=== PATIENT | female | born 1960 | race Hispanic/Latino ===

== ENCOUNTER → 2019-01-04 | Day surgery (SDC) | payer MEDICARE ==
[~2019-01-04] MED LIST: CARTIA XT180 MG PO; FENTANYL CITRATE/PF 100MCG/2 ML INJ ONE; MIDAZOLAM HCL 2 MG/2 ML VIAL ONE; PROPOFOL IV EMULSION 10 MG/ML 50 ML VIAL ONE
--- OUTSIDE RECORDS SUMMARY | 2019-01-04 06:31 | XMS REPORT | Continuity of Care Document ---
Author Author [facility] Interface Address Unknown Phone Unavailable Problems Problem Status Onset Date Classification Date Reported Comments Source FALL Active 07/29/2018 [facility] Discharge Diagnosis: Acute flank pain 08/09/2017 08/12/2017 [facility] Discharge Diagnosis: Acute UTI 08/09/2017 08/12/2017 [facility] Discharge Diagnosis: Abdominal pain in female 08/09/2017 08/12/2017 [facility] FLANK PAIN Active 08/09/2017 [facility] M54.12 - "RADICULOPATHY, CERVICAL REGION Active 06/02/2017 [facility] Discharge Diagnosis: Acute headache 03/02/2016 03/05/2016 [facility] Discharge Diagnosis: Paresthesias in left hand 03/02/2016 03/05/2016 [facility] NUMBNESS Active 03/02/2016 [facility] 723.4 - BRACHIAL NEURIT Active 06/27/2015 [facility] [id number], [id number] ([id number]), [id number], [id number]-- Active 05/23/2015 [facility] CERVICAL SPONDYLOSIS WITH MYELOPATHY Active 05/14/2015 Condition 05/14/2015 [facility] CERVICAL SPINAL STENOSIS Active 05/14/2015 Condition 05/14/2015 [facility] Cervical spondylosis with myelopathy<sup>2</sup> Active 05/14/2015 Problem 08/12/2017 Data migrated from [facility] on 05/27/15. [facility] CERV KYPHOSIS, ICD 9- 737.10 Active 03/19/2015 [facility] BACK PAIN Active 03/19/2015 [facility] HISTORY OF HYPERTENSION Inactive 03/17/2015 Condition 05/14/2015 [facility] TOBACCO USE DISORDER Inactive 03/17/2015 Condition 05/14/2015 [facility] CERVICAL NECK PAIN Active 03/17/2015 Condition 05/14/2015 [facility] CERVICAL HNP W/O MYELOPHATHY Active 03/17/2015 Condition 03/17/2015 [facility] KYPHOSIS (POSTURAL) Active 03/17/2015 Condition 05/14/2015 [facility] CERVICAL RADICULOPATHY Active 03/17/2015 Condition 05/14/2015 [facility] CERVICAL DISC DISORDER W/MYELOPAT Active 03/17/2015 Condition 05/14/2015 [facility] Cervical radiculopathy<sup>1</sup> Active 03/17/2015 Problem 08/12/2017 Data migrated from [facility] on 05/27/15. [facility] ACQUIRED SPONDYLOLISTHESIS Inactive 06/13/2012 Condition 05/14/2015 [facility] HERNIATED LUMBAR DISC Inactive 06/13/2012 Condition 05/14/2015 [facility] SPINAL STENOSIS, LUMBAR Inactive 06/13/2012 Condition 05/14/2015 [facility] SPONDYLOSIS, LUMBAR Inactive 06/13/2012 Condition 05/14/2015 [facility] SEROMA Inactive 06/13/2012 Condition 05/14/2015 [facility] Back pain Active Problem 08/25/2015 [facility] Acquired spondylolisthesis Active Problem 08/12/2017 [facility] Back injury Active Problem 08/12/2017 [facility] Cervical spine instability Active Problem 08/12/2017 [facility] Hepatitis C Active Problem 08/12/2017 [facility] Herniated lumbar intervertebral disc Active Problem 08/12/2017 [facility] Hypertension Active Problem 08/12/2017 [facility] Hypertension Active Problem 08/12/2017 [facility] Low back pain Active Problem 08/12/2017 [facility] Lumbar radiculopathy Active Problem 08/12/2017 [facility] Lumbar spinal stenosis Active Problem 08/12/2017 [facility] Lumbar spondylosis Active Problem 08/12/2017 [facility] Neck pain Active Problem 08/12/2017 [facility] Cervical spinal stenosis Active Problem 08/12/2017 [facility] Weakness Active Problem 08/12/2017 [facility] Herniated lumbar intervertebral disc Active Problem 06/04/2015 [facility] KYPHOSIS NOS Active [facility] ADMINISTRTVE [place] NOS Active [facility] Medications Medication Details Route Status Patient Instructions Ordering Provider Order Date Source [place] 10/325 oral tablet 1 tab, Route: PO, Drug Form: TAB, Dosing Weight 63.636, kg, ONCE, STAT, Start date: 08/09/17 21:42:00 [employer]HEAD CLE[employer]INTAINER, Stop date: 08/09/17 21:42:00 OVERHEAD CLEANER MAINTAINER Inactive 08/10/2017 [facility] Macrobid 100 mg oral capsule 100 mg=1 cap, PO, BID, X 7 day, # 14 cap, 0 Refill(s) Active 08/10/2017 [facility] Pepcid 20 mg oral tablet 20 mg=1 tab, PO, BID, # 28 tab, 0 Refill(s) Active 08/10/2017 [facility] Bentyl 10 mg oral capsule 10 mg=1 cap, PO, QID, # 28 cap, 0 Refill(s) Active 08/10/2017 [facility] Zofran ODT 4 mg oral tablet, disintegrating 4 mg=1 tab, PO, BID, PRN Nausea and Vomiting, Dissolve tab under tongue, # 6 tab, 0 Refill(s) Active 08/10/2017 [facility] Rocephin + water for INJection, sterile 10 mL 1 gm, Route: IVP, ONCE, Dosing Weight 63.636, kg, Priority: STAT, Start date: 08/09/17 20:17:00 OVERHEAD CLEANER MAINTAINER, Duration: 1 doses or times, Stop date: 08/09/17 20:17:00 OVERHEAD CLEANER MAINTAINER, ABX Indication: Urinary Tract InfectionNotes: (Same As: Rocephin). Use with 100 mL NS and infuse over 30 min MEDICATION WASTE Product Size: 1000 mg Product Wasted: ___ mg Inactive 08/10/2017 [facility] morphine Sulfate 4 mg, Route: IVP, ONCE, Dosing Weight 63.636, kg, Start date: 08/09/17 18:57:00 OVERHEAD CLEANER MAINTAINER, Stop date: 08/09/17 18:57:00 OVERHEAD CLEANER MAINTAINER Inactive 08/10/2017 [facility] NS (Bolus) IV 1,000 mL, 1,000 ml/hr, Infuse Over: 1 hr, Route: IV, ONCE, Priority: STAT, Dosing Weight 63.636 kg, Start date: 08/09/17 18:57:00 OVERHEAD CLEANER MAINTAINER, Duration: 1 doses or times, Stop date: 08/09/17 18:57:00 OVERHEAD CLEANER MAINTAINER Inactive 08/10/2017 [facility] Zofran 4 mg, Route: IVP, Drug form: INJ, ONCE, Dosing Weight 63.636, kg, Priority: STAT, Start date: 08/09/17 18:57:00 OVERHEAD CLEANER MAINTAINER, Stop date: 08/09/17 18:57:00 OVERHEAD CLEANER MAINTAINER Inactive 08/10/2017 [facility] ondansetron 4 mg, 2 mL, Route: IVP, Drug form: INJ, ONCE, Dosing Weight 65.909, kg, Priority: STAT, Start date: 08/09/17 16:16:00 OVERHEAD CLEANER MAINTAINER, Stop date: 08/09/17 16:16:00 CSTNotes: (Same as: Zofran) MEDICATION WASTE Product Size: 4 mg Product Wasted: ___ mg Inactive 08/09/2017 [facility] morphine Sulfate 4 mg, 1 mL, Route: IVP, Drug form: SOLN, ONCE, Dosing Weight 65.909, kg, Priority: STAT, Start date: 08/09/17 16:16:00 OVERHEAD CLEANER MAINTAINER, Stop date: 08/09/17 16:16:00 CSTNotes: (Same as:MORPhine Sulfate) Inactive 08/09/2017 [facility] Sodium Chloride 0.9% (Bolus) IV 1,000 mL, 2,000 ml/hr, Infuse Over: 30 minutes, Route: IV, 1,000, Drug form: INJ, ONCE, Priority: STAT, Dosing Weight 65.909 kg, Start date: 08/09/17 16:16:00 OVERHEAD CLEANER MAINTAINER, Duration: 1 doses or times, Stop date: 08/09/17 16:16:00 OVERHEAD CLEANER MAINTAINER Inactive 08/09/2017 [facility] Saline Flush 0.9% 10 mL, Route: IVP, Drug Form: INJ, Dosing Weight 65.909, kg, PRN, PRN Line Flush, Start date: 08/09/17 16:16:00 OVERHEAD CLEANER MAINTAINER, Duration: 30 day, Stop date: 09/08/17 16:15:00 CSTNotes: (Same as: BD Posiflush) Inactive 08/09/2017 [facility] Benadryl 25 mg, Route: IVP, ONCE, Dosing Weight 65.909, kg, Priority: STAT, Start date: 03/02/16 13:21:00 CDT, Stop date: 03/02/16 13:21:00 CDT Inactive 03/02/2016 [facility] Reglan 10 mg, Route: IVP, Drug form: INJ, ONCE, Dosing Weight 65.909, kg, Priority: STAT, Start date: 03/02/16 13:21:00 CDT, Stop date: 03/02/16 13:21:00 CDT Inactive 03/02/2016 [facility] Ketorolac 30 mg, Route: IVP, Drug form: INJ, ONCE, Dosing Weight 65.909, kg, Priority: STAT, Start date: 03/02/16 13:21:00 CDT, Stop date: 03/02/16 13:21:00 CDT Inactive 03/02/2016 [facility] Valproic Acid 100 MG/ML Injectable Solution 1,000 mg, 10 mL, Route: IVPB, ONCE, Dosing Weight 65.909, kg, Start date: 03/02/16 13:20:00 CDT, Stop date: 03/02/16 13:20:00 CDTNotes: TUBE TO #2E TUBE TO #2E TUBE TO #2E Dilute in at least 50ml D5W or NS. Infusion rate=20 mg/min (Same As: Depacon) Inactive 03/02/2016 [facility] Morphine 2 mg, Route: IVP, Drug form: INJ, ONCE, Dosing Weight 65.909, kg, Priority: STAT, Start date: 03/02/16 11:44:00 CDT, Stop date: 03/02/16 11:44:00 CDT Inactive 03/02/2016 [facility] Ondansetron 4 mg, Route: IVP, ONCE, Dosing Weight 65.909, kg, Priority: STAT, Start date: 03/02/16 11:44:00 CDT, Stop date: 03/02/16 11:44:00 CDT Inactive 03/02/2016 [facility] Saline Flush 0.9% 10 mL, Route: IVP, Drug Form: INJ, Dosing Weight 65.909, kg, PRN, PRN Line Flush, Start date: 03/02/16 11:44:00 CDT, Duration: 30 day, Stop date: 04/01/16 11:43:00 CDTNotes: Same as: BD Posiflush Sterile No Longer Active 03/02/2016 [facility] Sodium Chloride 0.154 MEQ/ML Injectable Solution 1,000 mL, Infuse Over: 1 hr, Route: IV, ONCE, Priority: STAT, Dosing Weight 65.909 kg, Start date: 03/02/16 11:44:00 CDT, Duration: 1 doses or times, Stop date: 03/02/16 11:44:00 CDT Inactive 03/02/2016 [facility] Cyclobenzaprine hydrochloride 10 MG Oral Tablet [Flexeril] 10 mg=1 tab, PO, TID, PRN as needed for muscle spasm, # 90 tab, 0 Refill(s), given to patient No Longer Active 06/01/2015 [facility] Acetaminophen 325 MG / Hydrocodone Bitartrate 10 MG Oral Tablet [[place] 10/325] 1 tab, PO, TID, PRN Pain, X 30 day, # 90 day, 0 Refill(s), given to patient Active 06/01/2015 [facility] Morphine 2 mg, 1 mL, Route: IVP, Drug form: INJ, Q2H, Dosing Weight 64.602, kg, PRN Pain Score 1-5, Start date: 05/31/15 10:46:00, Duration: 30 day, Stop date: 06/30/15 10:45:00Notes: (Same as:MORPhine Sulfate) No Longer Active 05/31/2015 [facility] Furosemide 20 MG Oral Tablet 20 mg, 1 tab, Route: PO, Drug form: TAB, Daily, Dosing Weight 64.602, kg, Start date: 05/30/15 9:00:00, Duration: 30 day, Stop date: 06/28/15 9:00:00 No Longer Active 05/30/2015 [facility] Cartia XT 180 mg, 1 cap, Route: PO, Drug form: ERCAP, Daily, Dosing Weight 64.602, kg, Start date: 05/30/15 9:00:00, Duration: 30 day, Stop date: 06/28/15 9:00:00Notes: (Same as:Cardizeaparna CD) Before meals. DO NOT CRUSH. No Longer Active 05/30/2015 [facility] Docusate Sodium 100 MG Oral Capsule [Colace] 100 mg, 1 cap, Route: PO, Drug form: CAP, BID, Dosing Weight 64.602, kg, Start date: 05/29/15 17:00:00, Duration: 30 day, Stop date: 06/28/15 9:00:00Notes: (Same as: Colace) (Do Not Crush) No Longer Active 05/29/2015 [facility] Bentyl 20 mg, 2 cap, Route: PO, Drug form: CAP, QID, Dosing Weight 64.602, kg, Start date: 05/29/15 17:00:00, Duration: 30 day, Stop date: 06/28/15 13:00:00Notes: (Same as: Bentyl) No Longer Active 05/29/2015 [facility] Meperidine 12.5 mg, 0.25 mL, Route: IVP, Drug form: INJ, Q30Min, Dosing Weight 64.602, kg, PRN Other -See Comment, For shivering, Start date: 05/29/15 15:36:00, Duration: 2 doses or times, Stop date: Limited # of timesNotes: (Same As: Demerol) Inactive 05/29/2015 [facility] Flumazenil 0.2 mg, 2 mL, Route: IVP, Drug form: INJ, PRN, Dosing Weight 64.602, kg, PRN Benzodiazepine Reversal, Initial dose, Start date: 05/29/15 15:36:00, Duration: 30 day, Stop date: 06/28/15 15:35:00Notes: (Same as: Romazicon) Inactive 05/29/2015 [facility] Morphine 2 mg, 1 mL, Route: IVP, Drug form: INJ, Q5Min, Dosing Weight 64.602, kg, PRN Pain Score 4-6, Start date: 05/29/15 15:36:00, Duration: 5 doses or times, Stop date: Limited # of timesNotes: (Same as:MO RPhine Sulfate) Inactive 05/29/2015 [facility] Hydromorphone 0.5 mg, 0.25 mL, Route: IVP, Drug form: INJ, Q5Min, Dosing Weight 64.602, kg, PRN Pain Score 7-10, Start date: 05/29/15 15:36:00, Duration: 4 doses or times, Stop date: Limited # of timesNotes: (Same as: Dilaudid) Inactive 05/29/2015 [facility] Hydralazine 10 mg, 0.5 mL, Route: IVP, Drug form: INJ, Q20Min, Dosing Weight 64.602, kg, PRN Elevated BP, Start date: 05/29/15 15:36:00, Duration: 2 doses or times, Stop date: Limited # of timesNotes: (Same as: Apresoline) Push over 5 minutes Inactive 05/29/2015 [facility] Labetalol 10 mg, 2 mL, Route: IVP, Drug form: INJ, Q5Min, Dosing Weight 64.602, kg, PRN Elevated BP, Start date: 05/29/15 15:36:00, Duration: 5 doses or times, Stop date: Limited # of timesNotes: (Same as: Normod yne, Trandate) Push over 2 minutes Give bolus over 2-3 minutes. Inactive 05/29/2015 [facility] Promethazine 6.25 mg, 0.25 mL, Route: IVPB, ONCE, Dosing Weight 64.602, kg, PRN Nausea & Vomiting, Start date: 05/29/15 15:36:00Notes: Do not give IV push. (Same as: Phenergan) Inactive 05/29/2015 [facility] Ondansetron 4 mg, 2 mL, Route: IVP, Drug form: INJ, ONCE, Dosing Weight 64.602, kg, PRN Nausea & Vomiting, Start date: 05/29/15 15:36:00Notes: (Same as: Zofran) MEDICATION WASTE Product Size: 4 mg Product Wasted: ___ mg Inactive 05/29/2015 [facility] Glycopyrrolate 0.2 mg, 1 mL, Route: IVP, Drug form: INJ, Q5Min, Dosing Weight 64.602, kg, PRN Bradycardia, Start date: 05/29/15 15:36:00, Duration: 3 doses or times, Stop date: Limited # of timesNotes: (Same as: Robinul) Inactive 05/29/2015 [facility] Ephedrine 5 mg, 0.1 mL, Route: IVP, Drug form: INJ, Q5Min, Dosing Weight 64.602, kg, PRN Low Blood Pressure, Start date: 05/29/15 15:36:00, Duration: 30 day, Stop date: 06/28/15 15:35:00Notes: (Same as: ePHEDr ine Sulfate) Inactive 05/29/2015 [facility] Naloxone 0.04 mg, 0.1 mL, Route: IVP, Drug form: INJ, Q2MIN, Dosing Weight 64.602, kg, PRN Narcotic Reversal, Start date: 05/29/15 15:36:00, Duration: 8 doses or times, Stop date: Limited # of timesNotes: Same as Narcan Inactive 05/29/2015 [facility] Calcium Chloride 0.0014 MEQ/ML / Potassium Chloride 0.004 MEQ/ML / Sodium Chloride 0.103 MEQ/ML / Sodium Lactate 0.028 MEQ/ML Injectable Solution 1,000 mL, Rate: 125 ml/hr, Infuse over: 8 hr, Route: IV, Dosing Weight 64.602 kg, Total Volume: 1,000, Start date: 05/29/15 15:36:00, Duration: 30 day, Stop date: 06/28/15 15:35:00 Inactive 05/29/2015 [facility] Morphine 30 mg, 30 mL, Route: IV, Initial Loading Dose: 2 mg, INTERNET MARKETING EXECUTIVE Dose: 1 mg, INTERNET MARKETING EXECUTIVE Lockout: 10 minutes, Continuous Basal Rate: 0 mg, 4 Hour Limit (In MG): 30, Drug Form: INJ, Continuous, Start date: 05/29/15 15: 30:00, Duration: 30 day, Stop date: 06/28/15 15:2...Notes: Dose: Delay: Basal rate: 4hr limit: (Same as:Nohelia) No Longer Active 05/29/2015 [facility] Naloxone 0.04 mg, 0.1 mL, Route: IVP, Drug form: INJ, Q2MIN, Dosing Weight 64.602, kg, PRN Narcotic Reversal, Start date: 05/29/15 15:11:00, Duration: 30 day, Stop date: 06/28/15 15:10:00Notes: Same as Narcan No Longer Active 05/29/2015 [facility] Acetaminophen 325 MG / Hydrocodone Bitartrate 10 MG Oral Tablet [[place] 10/325] 1 tab, Route: PO, Drug Form: TAB, Dosing Weight 64.602, kg, Q4H, PRN Pain Score 1-3, Start date: 05/29/15 15:11:00, Duration: 30 day, Stop date: 06/28/15 15:10:00Notes: Do not exceed 4gm/day of acetaminophen. (Same as: [place] 325/10) No Longer Active 05/29/2015 [facility] Zofran 4 mg, 2 mL, Route: IV, Drug form: INJ, Q6H, Dosing Weight 64.602, kg, PRN Nausea, Start date: 05/29/15 15:11:00, Duration: 30 day, Stop date: 06/28/15 15:10:00Notes: (Same as: Zofran) MEDICATION WASTE Product Size: 4 mg Product Wasted: ___ mg No Longer Active 05/29/2015 [facility] Robaxin 750 mg, 7.5 mL, Route: IV, Q6H, Dosing Weight 64.602, kg, PRN Muscle Spasms, Start date: 05/29/15 15:11:00, Duration: 30 day, Stop date: 06/28/15 15:10:00Notes: (Same as:Robaxin) No Longer Active 05/29/2015 [facility] LR IV 1,000 mL 1,000 mL, Rate: 75 ml/hr, Infuse over: 13.3 hr, Route: IV, Dosing Weight 64.602 kg, Total Volume: 1,000, Start date: 05/29/15 15:10:00, Duration: 30 day, Stop date: 06/28/15 15:09:00 No Longer Active 05/29/2015 [facility] Flexeril 10 mg, 1 tab, Route: PO, Drug form: TAB, TID, Dosing Weight 64.602, kg, PRN Spasm, Start date: 05/29/15 15:10:00, Duration: 30 day, Stop date: 06/28/15 15:09:00Notes: (Same As: Flexeril) No Longer Active 05/29/2015 [facility] Diphenhydramine 25 mg, 1 cap, Route: PO, Drug form: CAP, TID, Dosing Weight 64.602, kg, PRN Itching, Start date: 05/29/15 15:10:00, Duration: 30 day, Stop date: 06/28/15 15:09:00Notes: (Same as: Benadryl) No Longer Active 05/29/2015 [facility] phenol 1 spray, Route: TOP, Q2H, Drug form: SPRY, PRN Sore Throat, Start date: 05/29/15 15:10:00, Duration: 30 day, Stop date: 06/28/15 15:09:00 No Longer Active 05/29/2015 [facility] Ancef 1 gm, Route: IVPB, ONCE, Dosing Weight 64.602, kg, Start date: 05/29/15 13:03:00, Stop date: 05/29/15 13:03:00 Inactive 05/29/2015 [facility] ceFAZolin 2 gm, 100 mL, Route: IVPB, Drug form: INJ, ONCALL, Start date: 05/29/15 3:00:00, Duration: 18 hr, Stop date: 05/29/15 20:59:00Notes: Same as: Ancef Inactive 05/29/2015 [facility] Dicyclomine Hydrochloride 10 MG Oral Capsule [Bentyl] 20 mg=2 cap, PO, QID, 0 Refill(s) Active 05/27/2015 [facility] Furosemide 20 MG Oral Tablet 20 mg=1 tab, PO, Daily, 0 Refill(s) Active 05/27/2015 [facility] Carisoprodol 350 MG Oral Tablet [Soma] 350 mg=1 tab, PO, QID, 0 Refill(s) No Longer Active 05/27/2015 [facility] Unknown Home Medication fat burner 1 tab, PO, Every Other Day, Refill(s) 0 No Longer Active 05/27/2015 [facility] CARTIA XT 180 MG [id number] QHS Active 05/14/2015 [facility] EFFEXOR XR [id number] daily Active 05/14/2015 [facility] NEURONTIN CAP 600MG (GABAPENTIN) 1 PO TID Active 07/25/2012 [facility] NORCO 10-325 MG TABS 1 po Q 6 hours prn pain. Do not exceed 3 pills in 24 hours. No Longer Active 07/25/2012 [facility] SOMA 350 MG TABS one tab TID PRN muscle spasm Active 07/25/2012 [facility] NEURONTIN CAPS QHS Active 07/25/2012 [facility] SOMA 350 MG TABS TID Active 07/25/2012 [facility] NEURONTIN CAP 300MG 1 PO TID No Longer Active 06/27/2012 [facility] NORCO 10-325 MG TABS TID Active 06/13/2012 [facility] NEURONTIN 300 MG CAPS 1 capsule by mouth at bedtime No Longer Active 06/13/2012 [facility] Allergies, Adverse Reactions, Alerts Substance Category Reaction Severity Reaction type Status Date Reported Comments Source NKFA Assertion Drug allergy Active [facility] Tape Assertion Drug allergy Active [facility] Immunizations Immunization Date Given Site Status Last Updated Comments Source Results Order Name Results Value Reference Range Date Interpretation Comments Source Wrist complete DX Wrist complete DX Right wrist 3 views: There is a comminuted transverse fracture of the distal radial metaphysis with slight dorsal displacement and angulation. The distal radial articular surface appears intact. There is an avulsion of the ulnar styloid. There is no other fracture or dislocation. [id number] 07/29/2018 - - Read by: Dwain Crawford MD Dictated Date/time: 07/29/18 12:16 Electronically Signed by: Dwain Crawford MD 07/29/18 12:17 FINAL REPORT [facility] Hand 3 views DX Hand 3 views DX Right hand 3 views: Fractures of the distal radius and ulna are discussed further in the right wrist report on same date. There are rings over the proximal phalange ease of the index and ring fingers partially limiting evaluation in these areas. There is no other fracture or dislocation in the hand. There are no other significant articular abnormalities. [id number] 07/29/2018 - - Read by: Dwain Crawford MD Dictated Date/time: 07/29/18 12:21 Electronically Signed by: Dwain Crawford MD 07/29/18 12:23 FINAL REPORT [facility] URINE AND STOOL UA Urobilinogen <=1.0 mg/dL 0.1 - 1.0 08/10/2017 [facility] URINE AND STOOL UA Nitrite Positive *ABN* (08/09/17 7:30 PM) Negative 08/10/2017 [facility] URINE AND STOOL UA Blood Negative (08/09/17 7:30 PM) Negative 08/10/2017 [facility] URINE AND STOOL UA Bili Negative *NA* (08/09/17 7:30 PM) Negative 08/10/2017 [facility] URINE AND STOOL UA Leuk Est Large *ABN* (08/09/17 7:30 PM) Negative 08/10/2017 [facility] URINE AND STOOL UA Bacteria Occasional /HPF None Seen /HPF 08/10/2017 [facility] URINE AND STOOL UA Glucose Negative mg/dL Negative mg/dL 08/10/2017 [facility] URINE AND STOOL UA Ketones Negative mg/dL Negative mg/dL 08/10/2017 [facility] URINE AND STOOL UA Sq Epi Occasional /LPF Few /LPF 08/10/2017 [facility] URINE AND STOOL UA WBC 103 /HPF 0 - 5 08/10/2017 [facility] URINE AND STOOL UA RBC 2 /HPF 0 - 2 08/10/2017 [facility] URINE AND STOOL UA Protein Negative mg/dL Negative mg/dL 08/10/2017 [facility] URINE AND STOOL UA Spec Grav 1.016 <=1.030 08/10/2017 [facility] URINE AND STOOL UA Color Yellow *NA* (08/09/17 7:30 PM) Yellow 08/10/2017 [facility] URINE AND STOOL UA Turbidity Slight *ABN* (08/09/17 7:30 PM) Clear 08/10/2017 [facility] URINE AND STOOL UA pH 6.0 5.0 - 8.0 08/10/2017 [facility] URINE CHEM U Preg Negative (08/09/17 7:30 PM) Negative 08/10/2017 [facility] CHEM PANEL A/G Ratio 1.0 0.7 - 1.6 08/10/2017 [facility] CHEM PANEL Bili Indirect null 0.0 - 1.0 08/10/2017 [facility] CHEM PANEL Bili Direct null 0.0 - 0.3 08/10/2017 [facility] CHEM PANEL Globulin 4.1 g/dL 2.7 - 4.2 08/10/2017 [facility] CHEM PANEL ALT 22 unit/L 0 - 65 08/10/2017 [facility] CHEM PANEL AST 21 unit/L 0 - 37 08/10/2017 [facility] CHEM PANEL Alk Phos 91 unit/L 39 - 136 08/10/2017 [facility] CHEM PANEL Bili Total 0.3 mg/dL 0.2 - 1.3 08/10/2017 [facility] CHEM PANEL Total Protein 8.4 g/dL 6.4 - 8.4 08/10/2017 [facility] CHEM PANEL Albumin Lvl 4.3 g/dL 3.5 - 5.0 08/10/2017 [facility] CHEM PANEL eGFR 69 mL/min/1.73m2 08/09/2017 Result Comment: The eGFR is calculated using the CKD-EPI formula. In most young, healthy individuals the eGFR will be >90 mL/min/1.73m2. The eGFR declines with age. An eGFR of 60-89 may be normal in some populations, particularly the elderly, for whom the CKD-EPI formula has not been extensively validated. Use of the eGFR is not recommended in the following populations: Individuals with unstable creatinine concentrations, including patients and those with serious co-morbid conditions. Patients with extremes in muscle mass or diet. The data above are obtained from the National Kidney Disease Education Program (NKDEP) which additionally recommends that when the eGFR is used in patients with extremes of body mass index for purposes of drug dosing, the eGFR should be multiplied by the estimated BMI. [facility] CHEM PANEL Sodium Lvl 141 meq/L 135 - 145 08/09/2017 [facility] CHEM PANEL Potassium Lvl 4.2 meq/L 3.5 - 5.1 08/09/2017 [facility] CHEM PANEL Creatinine Lvl 0.93 mg/dL 0.50 - 1.40 08/09/2017 [facility] CHEM PANEL Glucose Lvl 115 mg/dL 70 - 99 08/09/2017 [facility] CHEM PANEL BUN 17 mg/dL 7 - 22 08/09/2017 [facility] CHEM PANEL CO2 29 meq/L 24 - 32 08/09/2017 [facility] CHEM PANEL Calcium Lvl 9.7 mg/dL 8.5 - 10.5 08/09/2017 [facility] CHEM PANEL Chloride Lvl 105 meq/L 95 - 109 08/09/2017 [facility] CHEM PANEL AGAP 11.2 meq/L 10.0 - 20.0 08/09/2017 [facility] CHEM PANEL Lipase Lvl 153 unit/L 73 - 393 08/09/2017 [facility] HEMATOLOGY MCHC 34.0 g/dL 32.0 - 36.0 08/09/2017 [facility] HEMATOLOGY MPV 8.7 fL 7.4 - 10.4 08/09/2017 [facility] HEMATOLOGY Platelet 252 K/CMM 133 - 450 08/09/2017 [facility] HEMATOLOGY RDW 13.2 % 11.5 - 14.5 08/09/2017 [facility] HEMATOLOGY RBC 4.34 M/CMM 4.20 - 5.40 08/09/2017 [facility] WBC 5.1 K/CMM 3.7 - 10.4 08/09/2017 [facility] Hct 41.0 % 36.0 - 48.0 08/09/2017 [facility] MCH 32.1 pg 27.0 - 31.0 08/09/2017 [facility] MCV 94.4 fL 80.0 - 98.0 08/09/2017 [facility] Hgb 13.9 g/dL 12.0 - 16.0 08/09/2017 [facility] Lymphocytes 37.5 % 20.0 - 40.0 08/09/2017 [facility] Segs 50.5 % 45.0 - 75.0 08/09/2017 [facility] Monocytes 9.5 % 2.0 - 12.0 08/09/2017 [facility] Monocytes # 0.5 K/CMM 0.0 - 0.8 08/09/2017 [facility] Eosinophils # 0.1 K/CMM 0.0 - 0.5 08/09/2017 [facility] Segs-Bands # 2.6 K/CMM 1.5 - 8.1 08/09/2017 [facility] Eosinophils 2.0 % 0.0 - 4.0 08/09/2017 [facility] Basophils 0.5 % 0.0 - 1.0 08/09/2017 [facility] Lymphocytes # 1.9 K/CMM 1.0 - 5.5 08/09/2017 [facility] Chest 2 views DX Chest 2 views DX Clinical Indication: Chest pain - right side low cwp; Comparison: None FINDINGS: The PA and lateral chest radiographs shows normal lung volumes without interstitial or airspace opacities, pleural effusions or pneumothorax. The heart size and pulmonary vasculature are normal. The trachea is midline. Inferior cervical spine shows postoperative fusion changes. IMPRESSION: No chest radiographic evidence of acute cardiopulmonary disease. SL: WHROSE 08/09/2017 - - Read by: Matt Guzman MD Dictated Date/time: 08/09/17 19:17 Electronically Signed by: Matt Guzman MD 08/09/17 19:18 FINAL REPORT [facility] Gallbladder US Gallbladder US Clinical Indication: Abdominal pain, acute - r/o stone; Comparison: CT from earlier the same day. TECHNIQUE: Grayscale and limited color sonographic evaluation of the right upper quadrant of the abdomen and gallbladder region was performed with standard technique. FINDINGS: LIVER: Normal size of the liver is noted at 16.4 cm craniocaudal dimension with normal echogenicity. No focal hepatic lesion is appreciated. Hepatopedal flow is demonstrated in the main portal vein. BILE DUCTS: The intrahepatic and extrahepatic bile ducts are not dilated with the common bile duct measuring 7 mm. The distal common bile duct is not well seen. GALLBLADDER: There are no gallstones, gallbladder sludge, pericholecystic fluid or wall thickening. PANCREAS: The visualized pancreas appears unremarkable. KIDNEY: The right kidney measures 9.6 cm. There is normal renal contour and morphology, with normal parenchymal echotexture. There is no hydronephrosis. AORTA AND INFERIOR VENA CAVA: The abdominal aorta was not imaged. Intrahepatic IVC is patent.. ASCITES: There is no right upper quadrant abdominal ascites. IMPRESSION: 1. No sonographic evidence for cholelithiasis or cholecystitis. 2. Common bile duct borderline dilated for the patient's age at 7 mm caliber. SL: [id number] 08/09/2017 - - Read by: Tiago Greene MD Dictated Date/time: 08/09/17 20:11 Electronically Signed by: Tiago Greene MD 08/09/17 20:13 FINAL REPORT [facility] Renal Stone CT Renal Stone CT Study: Renal Stone CT Clinical Indication: dlp: 949.83; EY - Acute onset flank pain concerning for kidney stone versus pyelonephritis; Comparison: None TECHNIQUE: Multiple axial CT images of the abdomen and pelvis were acquired without administration of intravenous contrast according to the renal stone protocol. Multiplanar reformatted images were performed. CT Radiation Dose: LXA=328.83 mGy-cm FINDINGS: The visualized lung bases are clear bilaterally. The kidneys are normal in size and morphology and without hydronephrosis or perinephric stranding. No renal or ureteral stones are seen. Urinary bladder, uterus, and visualized ovaries are unremarkable. The liver, gallbladder, pancreas, spleen, and adrenal glands are within the normal limits imposed by the lack of intravenous contrast. The visualized hollow viscera and appendix are unremarkable. No intraperitoneal free air, free fluid, or pathologic adenopathy is seen. Small, fat-containing umbilical hernia is present. Postoperative changes of multilevel laminectomy and fusion in the lower lumbar spine are seen from L3 through S1. IMPRESSION: 1. No acute intra-abdominal/pelvic abnormality and no evidence of obstructing renal collecting system stone. SL: RITA 08/09/2017 - - Read by: Donavan Mark MD Dictated Date/time: 08/09/17 17:19 Electronically Signed by: Donavan Mark MD 08/09/17 17:23 FINAL REPORT [facility]OOL UA Hyal Cast 2 /LPF 0 - 2 03/02/2016 [facility] UA Bacteria Occasional /HPF None Seen /HPF 03/02/2016 [facility] UA Color Ltyellow 03/02/2016 [facility] UA Urobilinogen <=1.0 mg/dL 0.1 - 1.0 03/02/2016 [facility] STOOL UA Nitrite Negative (03/02/16 2:13 PM) Negative 03/02/2016 [facility] UA Leuk Est Negative (03/02/16 2:13 PM) Negative 03/02/2016 [facility] UA WBC 1 /HPF 0 - 5 03/02/2016 [facility] UA RBC 1 /HPF 0 - 2 03/02/2016 [facility] UA Sq Epi Moderate /LPF Few /LPF 03/02/2016 [facility]INE [facility] STOOL UA Bili Negative *NA* (03/02/16 2:13 PM) Negative 03/02/2016 [facility]INE [facility] STOOL UA Blood Negative (03/02/16 2:13 PM) Negative 03/02/2016 [facility]INE [facility] STOOL UA Ketones Trace mg/dL Negative mg/dL 03/02/2016 [facility]INE [facility] STOOL UA Protein Negative mg/dL Negative mg/dL 03/02/2016 [facility]INE [facility] STOOL UA Glucose Negative mg/dL Negative mg/dL 03/02/2016 [facility]INE [facility] STOOL UA Spec Grav 1.017 <=1.030 03/02/2016 [facility] UA pH 5.0 5.0 - 8.0 03/02/2016 [facility] STOOL UA Turbidity Slight *ABN* (03/02/16 2:13 PM) Clear 03/02/2016 [facility] CARDIAC ENZYMES CK MB Index 1.5 0.0 - 2.5 03/02/2016 [facility] CARDIAC ENZYMES Troponin-I null 0.00 - 0.40 03/02/2016 [facility] CARDIAC ENZYMES Total CK 103 unit/L 12 - 191 03/02/2016 [facility] CARDIAC ENZYMES CK MB 1.5 ng/mL 0.5 - 3.6 03/02/2016 [facility] CHEM PANEL eGFR 70 mL/min/1.73m2 03/02/2016 Result Comment: The eGFR is calculated using the CKD-EPI formula. In most young, healthy individuals the eGFR will be >90 mL/min/1.73m2. The eGFR declines with age. An eGFR of 60-89 may be normal in some populations, particularly the elderly, for whom the CKD-EPI formula has not been extensively validated. Use of the eGFR is not recommended in the following populations: Individuals with unstable creatinine concentrations, including patients and those with serious co-morbid conditions. Patients with extremes in muscle mass or diet. The data above are obtained from the National Kidney Disease Education Program (NKDEP) which additionally recommends that when the eGFR is used in patients with extremes of body mass index for purposes of drug dosing, the eGFR should be multiplied by the estimated BMI. [facility] CHEM PANEL BUN 19 mg/dL 7 - 22 03/02/2016 [facility] CHEM PANEL Glucose Lvl 108 mg/dL 70 - 99 03/02/2016 [facility] CHEM PANEL Creatinine Lvl 0.92 mg/dL 0.50 - 1.40 03/02/2016 [facility] CHEM PANEL Bili Total 0.4 mg/dL 0.2 - 1.3 03/02/2016 [facility] CHEM PANEL Alk Phos 74 unit/L 39 - 136 03/02/2016 [facility] CHEM PANEL Globulin 3.7 g/dL 2.0 - 4.0 03/02/2016 [facility] CHEM PANEL AGAP 15.8 meq/L 10.0 - 20.0 03/02/2016 [facility] CHEM PANEL B/C Ratio 21 6 - 25 03/02/2016 [facility] CHEM PANEL CO2 22 meq/L 24 - 32 03/02/2016 [facility] CHEM PANEL Calcium Lvl 8.9 mg/dL 8.5 - 10.5 03/02/2016 [facility] CHEM PANEL Total Protein 7.9 g/dL 6.4 - 8.4 03/02/2016 [facility] CHEM PANEL A/G Ratio 1.1 0.7 - 1.6 03/02/2016 [facility] CHEM PANEL ALT 22 unit/L 0 - 65 03/02/2016 [facility] CHEM PANEL AST 17 unit/L 0 - 37 03/02/2016 [facility] CHEM PANEL Chloride Lvl 106 meq/L 95 - 109 03/02/2016 [facility] CHEM PANEL Sodium Lvl 140 meq/L 135 - 145 03/02/2016 [facility] CHEM PANEL Potassium Lvl 3.8 meq/L 3.5 - 5.1 03/02/2016 [facility] CHEM PANEL Albumin Lvl 4.2 g/dL 3.5 - 5.0 03/02/2016 [facility] HEMATOLOGY Basophils 0.7 % 0.0 - 1.0 03/02/2016 [facility] HEMATOLOGY Segs-Bands # 3.3 K/CMM 1.5 - 8.1 03/02/2016 [facility] HEMATOLOGY Monocytes # 0.4 K/CMM 0.0 - 0.8 03/02/2016 [facility] HEMATOLOGY Lymphocytes # 1.7 K/CMM 1.0 - 5.5 03/02/2016 [facility] HEMATOLOGY Segs 60.0 % 45.0 - 75.0 03/02/2016 [facility] HEMATOLOGY Lymphocytes 30.9 % 20.0 - 40.0 03/02/2016 [facility] HEMATOLOGY Monocytes 7.5 % 2.0 - 12.0 03/02/2016 [facility] HEMATOLOGY Eosinophils 0.9 % 0.0 - 4.0 03/02/2016 [facility] HEMATOLOGY MPV 8.7 fL 7.4 - 10.4 03/02/2016 [facility] HEMATOLOGY Platelet 250 K/CMM 133 - 450 03/02/2016 [facility] HEMATOLOGY MCHC 33.0 g/dL 32.0 - 36.0 03/02/2016 [facility] HEMATOLOGY RDW 13.1 % 11.5 - 14.5 03/02/2016 [facility] HEMATOLOGY MCV 91.7 fL 80.0 - 98.0 03/02/2016 [facility] HEMATOLOGY MCH 30.3 pg 27.0 - 31.0 03/02/2016 [facility] HEMATOLOGY RBC 4.22 M/CMM 4.20 - 5.40 03/02/2016 [facility] HEMATOLOGY Hgb 12.8 g/dL 12.0 - 16.0 03/02/2016 [facility] HEMATOLOGY Hct 38.7 % 36.0 - 48.0 03/02/2016 [facility] HEMATOLOGY WBC 5.4 K/CMM 3.7 - 10.4 03/02/2016 [facility] HEMATOLOGY PT 13.3 s 12.0 - 14.7 03/02/2016 [facility] HEMATOLOGY INR 0.98 0.85 - 1.17 03/02/2016 [facility] HEMATOLOGY PTT 29.0 s 22.9 - 35.8 03/02/2016 [facility] Chest 1view DX Chest 1view DX EXAM: Chest 1view DX DATE: 03/02/2016 11:44 AM CDT INDICATION: CVA COMPARISON: 05/27/2015 IMPRESSION: Stable cardiac silhouette and mediastinum. No focal consolidation, significant pleural effusion or pneumothorax. Postoperative cervical spinal fusion is present. SL: [id number] 03/02/2016 - - Read by: Laith Healy MD Dictated Date/time: 03/02/16 12:27 Electronically Signed by: Laith Healy MD 03/02/16 12:27 FINAL REPORT [facility] Brain wo contrast CT Brain wo contrast CT Brain wo contrast CT CLINICAL HISTORY: Facial numbness; COMPARISON: None TECHNIQUE: Contiguous transaxial images of the brain were performed without administration of IV contrast. Reformations were performed in sagittal and coronal projections. FINDINGS: BRAIN PARENCHYMA: There is no evidence for space-occupying lesions, mass effect or vasogenic edema. No evidence for parenchymal bleed, extra-axial collections or midline shift.. No acute infarct is noted. Cerebral volume is within normal limits. No ventriculomegaly. The basilar cisterns are normal. Cerebellum demonstrates normal morphology and volume. CALVARIUM AND SKULL BASE: No displaced bony fractures or other significant bony abnormality is visualized. BRAINSTEM, SELLA AND ORBITS: No evidence for Chiari malformation. No space- occupying lesion is visualized in the sella. Visualized portion of the orbits are unremarkable. MASTOIDS AND PARANASAL SINUSES: The visualized paranasal sinuses are clear. Mastoid air cells are clear bilaterally. IMPRESSION: No acute brain abnormality is noted. SL: [id number] 03/02/2016 - - Read by: Ignacio Brown MD Dictated Date/time: 03/02/16 12:52 Electronically Signed by: Ignacio Brown MD 03/02/16 12:53 FINAL REPORT [facility] Spine cervical series DX Spine cervical series DX EXAMINATION: Cervical spine - AP, lateral, obliques, and odontoid. HISTORY: Cervical spondylosis FINDINGS: Frontal, lateral, bilateral oblique, and odontoid views of the cervical spine are performed and compared to single intraoperative radiograph dated 05/29/2015. There is instrumented anterior cervical discectomy and fusion from C3 through C7 transfixed with an anterior plate, multiple screws, and interbody bone graft. Of note, the screws within the C7 vertebral body are at the far inferior margin. There is gentle reversal of the normal cervical lordosis centered at C3-C4. There is no listhesis. There is no osseous central canal stenosis. The lateral masses of C1 are well aligned with C2. The left neuroforamina are not profiled. Right neuroforamina are not well profiled, but there is possible osseous neuroforaminal narrowing on the right at C6-C7 and C7-T1. IMPRESSION: 1. Instrumented anterior cervical discectomy and fusion, C3-C7. 2. Right neuroforamina not well profiled, but there is possible osseous neuroforaminal narrowing on the right at C6-C7 and C7-T1. Left neuroforamina are not profiled. 08/22/2015 - - Read by: Terrance Rivas MD Dictated Date/time: 08/23/15 09:13 Electronically Signed by: Terrance Rivas MD 08/23/15 09:15 FINAL REPORT [facility] Spine lumbar 2 or 3 views DX Spine lumbar 2 or 3 views DX EXAMINATION: Lumbar spine flexion-extension 2 views only HISTORY: Lumbar spondylosis FINDINGS: Lateral flexion and lateral extension views of the lumbar spine are performed without comparison. There is combined instrumented anterior and posterior spinal fusion with posterior decompression from L3 through S1 transfixed posteriorly with paired vertical rods, multiple pedicle screws, and a crossbar at the level of L3-L4 and transfixed anteriorly with interbody spacers. There is evidence of instrumentation failure with fracture of the bilateral pedicle screws at the level of S1. There is mild anterolisthesis of L4 on L5 on flexion which does not change on extension. There is also mild retrolisthesis of L1 on L2 and L2 on L3 in flexion which does not change on extension. IMPRESSION: 1. Combined instrument anterior and posterior spinal fusion with posterior decompression, L3-S1, with evidence of instrumentation failure with fracture of the bilateral S1 pedicle screws. 2. Mild anterolisthesis of L4 on L5 in flexion which does not change on extension. 08/22/2015 - - Read by: Terrance Rivas MD Dictated Date/time: 08/23/15 09:10 Electronically Signed by: Terrance Rivas MD 08/23/15 09:13 FINAL REPORT [facility] Spine cervical 1 view DX Spine cervical 1 view DX EXAMINATION: Cervical spine one view. HISTORY: Cervical spondylosis. FINDINGS: Single crosstable intraoperative portable view of the upper cervical spine is performed and compared to prior intraoperative view dated same day at 10: 45 hours. The cervical spine is visualized to the level of the inferior endplate of C5. There has been interval instrumented anterior cervical discectomy and fusion from C3 through at least C6 transfixed with an anterior plate, multiple screws, and interbody bone graft. An endotracheal tube is partially visualized. IMPRESSION: 1. Single intraoperative crosstable lateral view of the upper cervical spine demonstrating interval instrumented anterior cervical discectomy and fusion from C3 through at least C6. 05/29/2015 - - Read by: Terrance Rivas MD Dictated Date/time: 05/29/15 16:32 Electronically Signed by: Terrance Rivas MD 05/29/15 16:34 FINAL REPORT [facility] Spine cervical 1 view DX Spine cervical 1 view DX EXAMINATION: Spine cervical one view. HISTORY: Cervical spondylosis with ongoing fusion FINDINGS: Single portable intraoperative crosstable lateral view of the upper cervical spine is submitted for interpretation. The cervical spine is visualized to the level of the superior endplate of C5. There is a radiopaque marker projecting along the anterior C2-C3 intervertebral disc space. C4-C5 degenerative disc disease is partially visualized. An endotracheal tube is also partially visualized. IMPRESSION: 1. Single portable intraoperative crosstable lateral view of the upper cervical spine demonstrating a radiopaque marker along the anterior C2-C3 intervertebral disc space. 05/29/2015 - - Read by: Terrance Rivas MD Dictated Date/time: 05/29/15 12:59 Electronically Signed by: Terrance Rivas MD 05/29/15 13:01 FINAL REPORT [facility] ELECTROLYTES AGAP 11.7 meq/L 10.0 - 20.0 05/27/2015 [facility] ELECTROLYTES eGFR 84 mL/min/1.73m2 05/27/2015 Result Comment: The eGFR is calculated using the CKD-EPI formula. In most young, healthy individuals the eGFR will be >90 mL/min/1.73m2. The eGFR declines with age. An eGFR of 60-89 may be normal in some populations, particularly the elderly, for whom the CKD-EPI formula has not been extensively validated. Use of the eGFR is not recommended in the following populations: Individuals with unstable creatinine concentrations, including patients and those with serious co-morbid conditions. Patients with extremes in muscle mass or diet. The data above are obtained from the National Kidney Disease Education Program (NKDEP) which additionally recommends that when the eGFR is used in patients with extremes of body mass index for purposes of drug dosing, the eGFR should be multiplied by the estimated BMI. [facility] ELECTROLYTES Chloride Lvl 105 meq/L 95 - 109 05/27/2015 [facility] ELECTROLYTES Creatinine Lvl 0.8 mg/dL 0.5 - 1.4 05/27/2015 [facility] ELECTROLYTES Sodium Lvl 140 meq/L 135 - 145 05/27/2015 [facility] ELECTROLYTES Potassium Lvl 3.7 meq/L 3.5 - 5.1 05/27/2015 [facility] ELECTROLYTES Calcium Lvl 9.0 mg/dL 8.5 - 10.5 05/27/2015 [facility] ELECTROLYTES Glucose Lvl 156 mg/dL 70 - 99 05/27/2015 [facility] ELECTROLYTES BUN 14 mg/dL 7 - 22 05/27/2015 [facility] ELECTROLYTES CO2 27 meq/L 24 - 32 05/27/2015 [facility] HEMATOLOGY Eosinophils 1.5 % 0.0 - 4.0 05/27/2015 [facility] HEMATOLOGY Segs 58.8 % 45.0 - 75.0 05/27/2015 [facility] HEMATOLOGY Lymphocytes 32.9 % 20.0 - 40.0 05/27/2015 [facility] HEMATOLOGY Monocytes 6.3 % 2.0 - 12.0 05/27/2015 [facility] HEMATOLOGY Basophils 0.5 % 0.0 - 1.0 05/27/2015 [facility] HEMATOLOGY Eosinophils # 0.1 K/CMM 0.0 - 0.5 05/27/2015 [facility] HEMATOLOGY Monocytes # 0.3 K/CMM 0.0 - 0.8 05/27/2015 [facility] HEMATOLOGY Segs-Bands # 3.2 K/CMM 1.5 - 8.1 05/27/2015 [facility] Lymphocytes # 1.8 K/CMM 1.0 - 5.5 05/27/2015 [facility] HEMATOLOGY Macrocyte 1+ *ABN* (05/27/15 11:38 AM) None Seen 05/27/2015 [facility] WBC 5.5 K/CMM 3.7 - 10.4 05/27/2015 [facility] HEMATOLOGY RDW 12.7 % 11.5 - 14.5 05/27/2015 [facility] MCH 31.9 pg 27.0 - 31.0 05/27/2015 [facility] MCHC 33.6 g/dL 32.0 - 36.0 05/27/2015 [facility] Hct 38.3 % 36.0 - 48.0 05/27/2015 [facility] MCV 94.9 fL 80.0 - 98.0 05/27/2015 [facility] Hgb 12.9 g/dL 12.0 - 16.0 05/27/2015 [facility] RBC 4.03 M/CMM 4.20 - 5.40 05/27/2015 [facility] Platelet 209 K/CMM 133 - 450 05/27/2015 [facility] MPV 8.6 fL 7.4 - 10.4 05/27/2015 [facility] PTT 29.0 s 22.9 - 35.8 05/27/2015 [facility] HEMATOLOGY PT 12.5 s 12.0 - 14.7 05/27/2015 [facility] HEMATOLOGY INR 0.94 0.85 - 1.17 05/27/2015 [facility] Chest 2 views DX Chest 2 views DX History: Coughing Comparison: None Findings: The visualized lung gates are clear. There is no pleural effusion or pneumothorax. The cardiomediastinal silhouette, lung volumes and pulmonary vasculature are within normal limits. There is no suspicious lytic or sclerotic lesion of the visualized bony structures. Impression: 1. No acute cardiopulmonary process. 05/27/2015 - - Read by: Kal Cerna MD Dictated Date/time: 05/27/15 12:02 Electronically Signed by: Kal Cerna MD 05/27/15 12:03 FINAL REPORT [facility] Vital Signs Vital Sign Value Date Comments Source Temperature Oral (F) 98.6 F 08/10/2017 [facility] Heart Rate 81 08/10/2017 [facility] Respitory Rate 18 08/10/2017 [facility] Systolic (mm Hg) 146 08/10/2017 [facility] Diastolic (mm Hg) 74 08/10/2017 [facility] Respitory Rate 19 08/10/2017 [facility] Heart Rate 83 08/10/2017 [facility] Systolic (mm Hg) 141 08/10/2017 [facility] Diastolic (mm Hg) 82 08/10/2017 [facility] Height 154.94 cm 08/09/2017 [facility] BMI Calculated 26.51 08/09/2017 [facility] Weight 63.636 08/09/2017 [facility] Temperature Oral (F) 98.2 F 08/09/2017 [facility] Respitory Rate 20 08/09/2017 [facility] Heart Rate 101 08/09/2017 [facility] Systolic (mm Hg) 170 08/09/2017 [facility] Diastolic (mm Hg) 66 08/09/2017 [facility] Systolic (mm Hg) 103 03/02/2016 [facility] Diastolic (mm Hg) 71 03/02/2016 [facility] Respitory Rate 16 03/02/2016 [facility] Systolic (mm Hg) 100 03/02/2016 [facility] Diastolic (mm Hg) 67 03/02/2016 [facility] Systolic (mm Hg) 116 03/02/2016 [facility] Diastolic (mm Hg) 75 03/02/2016 [facility] Respitory Rate 15 03/02/2016 [facility] Respitory Rate 16 03/02/2016 [facility] Weight 65.909 03/02/2016 [facility] Heart Rate 70 03/02/2016 [facility] Temperature Oral (F) 98.1 F 03/02/2016 [facility] Height 154.94 cm 03/02/2016 [facility] BMI Calculated 27.45 03/02/2016 [facility] Respitory Rate 10 06/01/2015 [facility] Systolic (mm Hg) 93 06/01/2015 [facility] Diastolic (mm Hg) 69 06/01/2015 [facility] Respitory Rate 16 06/01/2015 [facility] Systolic (mm Hg) 93 06/01/2015 [facility] Diastolic (mm Hg) 62 06/01/2015 [facility] Respitory Rate 10 06/01/2015 [facility] Systolic (mm Hg) 93 06/01/2015 [facility] Diastolic (mm Hg) 63 06/01/2015 [facility] Temperature Oral (F) 100.9 F 06/01/2015 [facility] Temperature Oral (F) 98.1 F 06/01/2015 [facility] Temperature Oral (F) 99.8 F 06/01/2015 [facility] Height 152.4 cm 05/27/2015 [facility] Weight 64.602 05/27/2015 [facility] BMI Calculated 27.81 05/27/2015 [facility] Weight 145 05/14/2015 [facility] Height 59 05/14/2015 [facility] Temperature Oral (F) 97.9 F 05/14/2015 [facility] Heart Rate 73 05/14/2015 [facility] Systolic (mm Hg) 126 05/14/2015 [facility] Diastolic (mm Hg) 81 05/14/2015 [facility] Weight 141 03/17/2015 [facility] Weight 141 03/17/2015 [facility] Height 1246 03/17/2015 [facility] Temperature Oral (F) 98.1 F 03/17/2015 [facility] Heart Rate 62 03/17/2015 [facility] Systolic (mm Hg) 142 03/17/2015 [facility] Diastolic (mm Hg) 89 03/17/2015 [facility] Encounters Location Location Details Encounter Type Encounter Number Reason For Visit Attending Provider ADM Date DC Date Status Source [facility] Spine Office Visit [id number] Margarito Jorgensen MD 03/17/2015 03/17/2015 [facility] Office Visit [id number] Margarito Jorgensen MD 05/14/2015 05/14/2015 [facility] Inpatient [id number] Chavo Etienne 05/29/2015 06/01/2015 [facility] Outpatient [id number] WINSOME PRIYANKA 06/27/2015 Active [facility] Outpatient [id number] ROXANNA MELGOZA 08/22/2015 Active [facility] Outpatient Imaging [facility] [facility] [id number] [place] Domonique 08/22/2015 08/23/2015 [facility] Out[facility] [id number] FANTA JAEGER 10/07/2015 Active [facility] Out[facility] [id number] CHAVO ETIENNE 11/12/2015 Active [facility] Outpatient [id number] CHAVO ETIENNE 11/19/2015 Active [facility] Outpatient [id number] ROXANNA MELGOZA 12/31/2015 Active [facility] [id number] Cher Louise 03/02/2016 03/02/2016 [facility] Outpatient [id number] ROXANNA MELGOZA 02/22/2017 Active [facility] [id number] Gladis Oliveros 08/09/2017 08/10/2017 [facility] Procedures Procedure Code Date Perfomer Comments Source ACDF C3-C7 [id number] 05/29/2015 [facility] ACDF C3-C7 [id number] 05/29/2015 [facility] smoking/tobacco cessation, patient education and counseling 14 03/17/2015 yes [facility] Left ankle ORIF [id number] 10/03/2007 [facility] Left ankle ORIF 2070070410/03/2007 [facility] Revision posterior fusion of lumbar spine w/ removal of hardware [id number] 10/03/2003 [facility] Revision posterior fusion of lumbar spine w/ removal of hardware [id number] 10/03/2003 [facility] Revision posterior fusion of lumbar spine [id number] 10/03/2001 [facility] Revision posterior fusion of lumbar spine [id number] 10/03/2001 [facility] Fusion of joint of lumbar spine with internal fixation by posterior approach [id number] 10/03/1999 [facility] Fusion of joint of lumbar spine with internal fixation by posterior approach [id number] 10/03/1999 [facility] ORIF - left wrist<sup>1</sup> [id number] 10/03/1995 Left wrist [facility] ORIF - left wrist<sup>1</sup> [id number] 10/03/1995 Left wrist [facility] section [id number] 10/03/1984 [facility] section [id number] 10/03/1984 [facility] Lumbar epidural injection [id number] [facility] Removal of left ankle ORIF [id number] [facility] Lumbar epidural injection [id number] [facility] Removal of left ankle ORIF [id number] [facility] section [id number] [facility] Fusion of joint of lumbar spine with internal fixation by posterior approach [id number] [facility] Lumbar epidural injection [id number] [facility] Open reduction and fixation of fracture<sup>1</sup> [id number] Left wrist [facility]
--- OUTSIDE RECORDS SUMMARY | 2019-01-04 06:31 | XMS REPORT | Summary of Care ---
Author Author [facility] Organization [facility] Address Unknown Phone Unavailable Encounter NANY Real(NANCY) [id number] Date(s): 03/02/16 - 03/02/16 [facility] [address] [place] [address]- Discharge Diagnosis: Acute headache Discharge Diagnosis: Paresthesias in left hand Discharge Disposition: Home Attending Physician: Cher Louise MD Vital Signs 1 2 3 Most recent to oldest [Reference Range]: 154.94 cm (03/02/16 10:36 AM) Height 98.1 DegF (03/02/16 10:36 AM) Temperature Oral [96.4-99.1 DegF] 103/71 mmHg (03/02/16 4:05 PM) 100/67 mmHg (03/02/16 3:20 PM) 116/75 mmHg (03/02/16 2:15 PM) Blood Pressure [90-140/60-90 mmHg] 16 BRMIN (03/02/16 3:20 PM) 15 BRMIN (03/02/16 2:15 PM) 16 BRMIN (03/02/16 1:15 PM) Respiratory Rate [14-20 BRMIN] 70 bpm (03/02/16 10:36 AM) Peripheral Pulse Rate [60-100 bpm] 65.909 kg (03/02/16 10:36 AM) Weight 27.45 m2 (03/02/16 10:36 AM) Body Mass Index Problem List Condition Effective Dates Status Health Status Informant Acquired Active spondylolisthesis(Co nfirmed) Back Active injury(Confirmed) Cervical 03/17/15 Active radiculopathy1 Cervical spine Active instability(Confirme d) Cervical spondylosis 05/14/15 Active with myelopathy2 Hepatitis Active C(Confirmed) Herniated lumbar Active intervertebral disc(Confirmed) Hypertension(Confirm Active ed) Hypertension(Confirm Active ed) Low back Active pain(Confirmed) Lumbar Active radiculopathy(Confir med) Lumbar spinal Active stenosis(Confirmed) Lumbar Active spondylosis(Confirme d) Lumbar Active spondylosis(Confirme d) Neck pain(Confirmed) Active Cervical spinal Active stenosis(Confirmed) Weakness(Confirmed) Active 1Data migrated from [employer] on 05/27/15. 2Data migrated from [employer] on 05/27/15. Allergies, Adverse Reactions, Alerts Substance Reaction Severity Status NKDA Active NKFA Active Tape Active Medications Benadryl 25 mg, Route: IVP, ONCE, Dosing Weight 65.909, kg, Priority: STAT, Start date: 0 03/02/16 13:21:00 CDT, Stop date: 03/02/16 13:21:00 CDT Start Date: 03/02/16 Stop Date: 03/02/16 Status: Completed ketOROLAC 30 mg, Route: IVP, Drug form: INJ, ONCE, Dosing Weight 65.909, kg, Priority: STA T, Start date: 03/02/16 13:21:00 CDT, Stop date: 03/02/16 13:21:00 CDT Start Date: 03/02/16 Stop Date: 03/02/16 Status: Completed morphine Sulfate 2 mg, Route: IVP, Drug form: INJ, ONCE, Dosing Weight 65.909, kg, Priority: STAT , Start date: 03/02/16 11:44:00 CDT, Stop date: 03/02/16 11:44:00 CDT Start Date: 03/02/16 Stop Date: 03/02/16 Status: Completed ondansetron 4 mg, Route: IVP, ONCE, Dosing Weight 65.909, kg, Priority: STAT, Start date: 11:44:00 CDT, Stop date: 03/02/16 11:44:00 CDT Start Date: 03/02/16 Stop Date: 03/02/16 Status: Completed Reglan 10 mg, Route: IVP, Drug form: INJ, ONCE, Dosing Weight 65.909, kg, Priority: STA T, Start date: 03/02/16 13:21:00 CDT, Stop date: 03/02/16 13:21:00 CDT Start Date: 03/02/16 Stop Date: 03/02/16 Status: Completed Saline Flush 0.9% 10 mL, Route: IVP, Drug Form: INJ, Dosing Weight 65.909, kg, PRN, PRN Line Flush , Start date: 03/02/16 11:44:00 CDT, Duration: 30 day, Stop date: 04/01/16 11:43 :00 CDT Notes: Same as: BD Posiflush Sterile Start Date: 03/02/16 Stop Date: 03/03/16 Status: Discontinued Sodium Chloride 0.9% (Bolus) IV 1,000 mL, Infuse Over: 1 hr, Route: IV, ONCE, Priority: STAT, Dosing Weight 65.9 09 kg, Start date: 03/02/16 11:44:00 CDT, Duration: 1 doses or times, Stop date: 03/02/16 11:44:00 CDT Start Date: 03/02/16 Stop Date: 03/02/16 Status: Completed valproic acid 100 mg/mL intravenous solution + Sodium Chloride 0.9% IV 90 mL 1,000 mg, 10 mL, Route: IVPB, ONCE, Dosing Weight 65.909, kg, Start date: 13:20:00 CDT, Stop date: 03/02/16 13:20:00 CDT Notes: TUBE TO #2ETUBE TO #2ETUBE TO #2EDilute in at least 50ml D5W or NS. Infus ion rate=20 mg/min(Same As: Depacon) Start Date: 03/02/16 Stop Date: 03/02/16 Status: Discontinued Results ELECTROLYTES Most recent to 1 oldest [Reference Range]: Sodium Lvl [135-145 140 mEq/L mEq/L] (03/02/16 12:17 PM) Potassium Lvl 3.8 mEq/L [3.5-5.1 mEq/L] (03/02/16 12:17 PM) Chloride Lvl [95-109 106 mEq/L mEq/L] (03/02/16 12:17 PM) CO2 [24-32 mEq/L] 22 mEq/L *LOW* (03/02/16 12:17 PM) AGAP [10.0-20.0 15.8 mEq/L mEq/L] (03/02/16 12:17 PM) CHEM PANEL Most recent to 1 oldest [Reference Range]: Creatinine Lvl 0.92 mg/dL [0.50-1.40 mg/dL] (03/02/16 12: PM) eGFR 70 mL/min/1.73m2 1 *NA* (03/02/16: PM) BUN [7-22 mg/dL] 19 mg/dL (03/02/16: PM) B/C Ratio [6-25] 21 (03/02/16: PM) Glucose Lvl [70-99 108 mg/dL mg/dL] *HI* (03/02/16: PM) Total Protein 7.9 g/dL [6.4-8.4 g/dL] (03/02/16: PM) Albumin Lvl [3.5-5.0 4.2 g/dL g/dL] (03/02/16: PM) Globulin [2.0-4.0 3.7 g/dL g/dL] (03/02/16: PM) A/G Ratio [0.7-1.6] 1.1 (03/02/16: PM) Calcium Lvl 8.9 mg/dL [8.5-10.5 mg/dL] (03/02/16 12:17 PM) ALT [0-65 unit/L] 22 unit/L (03/02/16 12:17 PM) AST [0-37 unit/L] 17 unit/L (03/02/16: PM) Alk Phos [39-136 74 unit/L unit/L] (03/02/16:17 PM) Bili Total [0.2-1.3 0.4 mg/dL mg/dL] (03/02/16 12: PM) 1Result Comment: The eGFR is calculated using the [...] from the National Kidney Disease Education Program ( NKDEP) which additionally recommends that when the eGFR is used in patients with extremes of body mass index for purposes of drug dosing, the eGFR should be mul tiplied by the estimated BMI. CARDIAC ENZYMES Most recent to 1 oldest [Reference Range]: Total CK [12-191 103 unit/L unit/L] (03/02/16 12:17 PM) CK MB [0.5-3.6 1.5 ng/mL ng/mL] (03/02/16 12:17 PM) CK MB Index 1.5 [0.0-2.5] (03/02/16 12:17 PM) Troponin-I <0.02 ng/mL [0.00-0.40 ng/mL] (03/02/16 12:17 PM) URINE AND STOOL Most recent to 1 oldest [Reference Range]: UA Turbidity [Clear] Slight *ABN* (03/02/16 2:13 PM) UA Color Ltyellow *NA* (03/02/16 2:13 PM) UA pH [5.0-8.0] 5.0 (03/02/16 2:13 PM) UA Spec Grav 1.017 [<=1.030] (03/02/16 2:13 PM) UA Glucose [Negative Negative mg/dL mg/dL] *NA* (03/02/16 2:13 PM) UA Blood [Negative] Negative (03/02/16 2:13 PM) UA Ketones [Negative Trace mg/dL mg/dL] *ABN* (03/02/16 2:13 PM) UA Protein [Negative Negative mg/dL mg/dL] (03/02/16 2:13 PM) UA Urobilinogen <=1.0 mg/dL [0.1-1.0 mg/dL] *NA* (03/02/16 2:13 PM) UA Bili [Negative] Negative *NA* (03/02/16 2:13 PM) UA Leuk Est Negative [Negative] (03/02/16 2:13 PM) UA Nitrite Negative [Negative] (03/02/16 2:13 PM) UA WBC [0-5 /HPF] 1 /HPF (03/02/16 2:13 PM) UA RBC [0-2 /HPF] 1 /HPF (03/02/16 2:13 PM) UA Bacteria [None Occasional /HPF Seen /HPF] *NA* (03/02/16 2:13 PM) UA Sq Epi [Few /LPF] Moderate /LPF *ABN* (03/02/16 2:13 PM) UA Hyal Cast [0-2 2 /LPF /LPF] (03/02/16 2:13 PM) HEMATOLOGY Most recent to 1 oldest [Reference Range]: WBC [3.7-10.4 K/CMM] 5.4 K/CMM (03/02/16 12:17 PM) RBC [4.20-5.40 4.22 M/CMM M/CMM] (03/02/16 12:17 PM) Hgb [12.0-16.0 g/dL] 12.8 g/dL (03/02/16 12:17 PM) Hct [36.0-48.0 %] 38.7 % (03/02/16 12:17 PM) MCV [80.0-98.0 fL] 91.7 fL (03/02/16 12:17 PM) MCH [27.0-31.0 pg] 30.3 pg (03/02/16 12:17 PM) MCHC [32.0-36.0 33.0 g/dL g/dL] (03/02/16 12:17 PM) RDW [11.5-14.5 %] 13.1 % (03/02/16 12:17 PM) Platelet [133-450 250 K/CMM K/CMM] (03/02/16 12:17 PM) MPV [7.4-10.4 fL] 8.7 fL (03/02/16 12:17 PM) Segs [45.0-75.0 %] 60.0 % (03/02/16 12:17 PM) Lymphocytes 30.9 % [20.0-40.0 %] (03/02/16 12:17 PM) Monocytes [2.0-12.0 7.5 % %] (03/02/16 12:17 PM) Eosinophils [0.0-4.0 0.9 % %] (03/02/16 12:17 PM) Basophils [0.0-1.0 0.7 % %] (03/02/16 12:17 PM) Segs-Bands # 3.3 K/CMM [1.5-8.1 K/CMM] (03/02/16 12:17 PM) Lymphocytes # 1.7 K/CMM [1.0-5.5 K/CMM] (03/02/16 12:17 PM) Monocytes # [0.0-0.8 0.4 K/CMM K/CMM] (03/02/16 12:17 PM) PT [12.0-14.7 13.3 seconds seconds] (03/02/16 12:17 PM) INR [0.85-1.17] 0.98 (03/02/16 12:17 PM) PTT [22.9-35.8 29.0 seconds seconds] (03/02/16 12:17 PM) Immunizations No data available for this section Procedures Procedure Date Related Diagnosis Body Site ACDF C3-C7 05/29/15 Left ankle ORIF 2007 Revision posterior fusion of lumbar spine 2003 removal of hardware Revision posterior fusion of lumbar spine 2001 Fusion of joint of lumbar spine with internal 2000 fixation by posterior approach ORIF - left wrist1 1995 section 1984 Lumbar epidural injection Removal of left ankle ORIF 1Left wrist Social History Social History Type Response Alcohol Current Smoking Status Light tobacco smoker; Type: Cigarettes; Ready to change: Yes; Exposure to Tobacco Smoke None; Cigarette Smoking Last 365 Days Yes; Reg Smoking Cessation Counseling Yes1 1The patient has not smoked since her surgery on 05/29/2015 and plans to quit permanently Assessment and Plan No data available for this section
--- OUTSIDE RECORDS SUMMARY | 2019-01-04 06:31 | XMS REPORT | Summary of Care ---
Author Author [facility] Organization [facility] Address Unknown Phone Unavailable Encounter NANY Real(NANCY) [id number] Date(s): 08/22/15 - 08/22/15 [facility] Outpatient [facility] [address] [place] [phone] Discharge Disposition: Home Attending Physician: Jeanette Youssef [employer] Vital Signs No data available for this section Problem List Condition Effective Dates Status Health Status Informant Acquired Active spondylolisthesis(Co nfirmed) Back Active injury(Confirmed) Back pain(Confirmed) Active Cervical 03/17/15 Active radiculopathy1 Cervical spine Active instability(Confirme d) Cervical spondylosis 05/14/15 Active with myelopathy2 Hepatitis Active C(Confirmed) Herniated lumbar Active intervertebral disc(Confirmed) Hypertension(Confirm Active ed) Hypertension(Confirm Active ed) Lumbar spinal Active stenosis(Confirmed) Lumbar Active spondylosis(Confirme d) Lumbar Active spondylosis(Confirme d) Neck pain(Confirmed) Active Cervical spinal Active stenosis(Confirmed) Weakness(Confirmed) Active 1Data migrated from [employer] on 05/27/15. 2Data migrated from [employer] on 05/27/15. Allergies, Adverse Reactions, Alerts Substance Reaction Severity Status NKDA Active NKFA Active Tape Active Medications No data available for this section Results No data available for this section Immunizations No data available for this section Procedures Procedure Date Related Diagnosis Body Site ACDF C3-C7 05/29/15 Left ankle ORIF 2007 Revision posterior fusion of lumbar spine 2003 removal of hardware Revision posterior fusion of lumbar spine 2001 Fusion of joint of lumbar spine with internal 2000 fixation by posterior approach ORIF - left wrist1 1995 section 1985 Lumbar epidural injection Removal of left ankle [...]
--- OUTSIDE RECORDS SUMMARY | 2019-01-04 06:31 | XMS REPORT | Summary of Care ---
Author Author [facility] Organization [facility] Address Unknown Phone Unavailable Encounter NANY Real(NANCY) [id number] Date(s): 05/29/15 - 06/01/15 [id number] [place] [address]- Discharge Disposition: Home Attending Physician: Chavo Etienne MD Admitting Physician: Chavo Etienne MD Referring Physician: Chavo Etienne MD Vital Signs 1 2 3 Most recent to oldest [Reference Range]: 152.4 cm (05/27/15 10:42 AM) Height 1 2 3 Most recent to oldest [Reference Range]: 100.9 DegF *HI* (06/01/15 4:00 AM) 98.1 DegF (06/01/15 12:00 AM) 99.8 DegF *HI* (05/31/15 8:00 PM) Temperature Oral [96.4-99.1 DegF] 1 2 3 Most recent to oldest [Reference Range]: 93/69 mmHg (06/01/15 12:00 PM) 93/62 mmHg (06/01/15 11:00 AM) 93/63 mmHg (06/01/15 7:00 AM) Blood Pressure [90-140/60-90 mmHg] 1 2 3 Most recent to oldest [Reference Range]: 10 BRMIN *LOW* (06/01/15 12:00 PM) 16 BRMIN (06/01/15 11:00 AM) 10 BRMIN *LOW* (06/01/15 7:00 AM) Respiratory Rate [14-20 BRMIN] 1 2 3 Most recent to oldest [Reference Range]: 64.602 kg (05/27/15 10:42 AM) Weight 1 2 3 Most recent to oldest [Reference Range]: 27.81 m2 (05/27/15 10:42 AM) Body Mass Index Problem List Condition [...] Active spondylosis(Confirme d) Lumbar Active spondylosis(Confirme d) Weakness(Confirmed) Active 1Data migrated from [employer] on 05/27/15. 2Data migrated from [employer] on 05/27/15. Allergies, Adverse Reactions, Alerts Substance Reaction Severity Status NKDA Active NKFA Active Tape Active Medications Ancef 1 gm, Route: IVPB, ONCE, Dosing Weight 64.602, kg, Start date: 05/29/15 13:03:00 , Stop date: 05/29/15 13:03:00 Start Date: 05/29/15 Stop Date: 05/29/15 Status: Completed Bentyl 20 mg, 2 cap, Route: PO, Drug form: CAP, QID, Dosing Weight 64.602, kg, Start da te: 05/29/15 17:00:00, Duration: 30 day, Stop date: 06/28/15 13:00:00 Notes: (Same as: Bentyl) Start Date: 05/29/15 Stop Date: 06/01/15 Status: Discontinued Bentyl 10 mg oral capsule 20 mg=2 cap, PO, QID, 0 Refill(s) Start Date: 05/27/15 Status: Ordered Cartia XT 180 mg, 1 cap, Route: PO, Drug form: ERCAP, Daily, Dosing Weight 64.602, kg, Sta rt date: 05/30/15 9:00:00, Duration: 30 day, Stop date: 06/28/15 9:00:00 Notes: (Same as:Cardizem CD) Before meals. DO NOT CRUSH. Start Date: 05/30/15 Stop Date: 06/01/15 Status: Discontinued ceFAZolin 2 gm, 100 mL, Route: IVPB, Drug form: INJ, ONCALL, Start date: 05/29/15 3:00:00, Duration: 18 hr, Stop date: 05/29/15 20:59:00 Notes: Same as: Ancef Start Date: 05/29/15 Stop Date: 05/29/15 Status: Completed Chloraseptic 1.4% spray 1 spray, Route: TOP, Q2H, Drug form: SPRY, PRN Sore Throat, Start date: 05/29/15 15:10:00, Duration: 30 day, Stop date: 06/28/15 15:09:00 Start Date: 05/29/15 Stop Date: 06/01/15 Status: Discontinued Colace 100 mg oral capsule 100 mg, 1 cap, Route: PO, Drug form: CAP, BID, Dosing Weight 64.602, kg, Start d ate: 05/29/15 17:00:00, Duration: 30 day, Stop date: 06/28/15 9:00:00 Notes: (Same as: Colace) (Do Not Crush) Start Date: 05/29/15 Stop Date: 06/01/15 Status: Discontinued diphenhydrAMINE 25 mg, 1 cap, Route: PO, Drug form: CAP, TID, Dosing Weight 64.602, kg, PRN Itch ing, Start date: 05/29/15 15:10:00, Duration: 30 day, Stop date: 06/28/15 15:09: 00 Notes: (Same as: Benadryl) Start Date: 05/29/15 Stop Date: 06/01/15 Status: Discontinued ePHEDrine 5 mg, 0.1 mL, Route: IVP, Drug form: INJ, Q5Min, Dosing Weight 64.602, kg, PRN L ow Blood Pressure, Start date: 05/29/15 15:36:00, Duration: 30 day, Stop date: 0 06/28/15 15:35:00 Notes: (Same as: ePHEDrine Sulfate) Start Date: 05/29/15 Stop Date: 05/29/15 Status: Discontinued Flexeril 10 mg, 1 tab, Route: PO, Drug form: TAB, TID, Dosing Weight 64.602, kg, PRN Spas m, Start date: 05/29/15 15:10:00, Duration: 30 day, Stop date: 06/28/15 15:09:00 Notes: (Same As: Flexeril) Start Date: 05/29/15 Stop Date: 06/01/15 Status: Discontinued Flexeril 10 mg oral tablet 10 mg=1 tab, PO, TID, PRN as needed for muscle spasm, # 90 tab, 0 Refill(s), giv en to patient Start Date: 06/01/15 Stop Date: 06/02/15 Status: Completed flumazenil 0.2 mg, 2 mL, Route: IVP, Drug form: INJ, PRN, Dosing Weight 64.602, kg, PRN Srini zodiazepine Reversal, Initial dose, Start date: 05/29/15 15:36:00, Duration: 30 day, Stop date: 06/28/15 15:35:00 Notes: (Same as: Romazicon) Start Date: 05/29/15 Stop Date: 05/29/15 Status: Discontinued furosemide 20 mg oral tablet 20 mg=1 tab, PO, Daily, 0 Refill(s) Start Date: 05/27/15 Status: Ordered furosemide 20 mg oral tablet 20 mg, 1 tab, Route: PO, Drug form: TAB, Daily, Dosing Weight 64.602, kg, Start date: 05/30/15 9:00:00, Duration: 30 day, Stop date: 06/28/15 9:00:00 Start Date: 05/30/15 Stop Date: 06/01/15 Status: Discontinued glycopyrrolate 0.2 mg, 1 mL, Route: IVP, Drug form: INJ, Q5Min, Dosing Weight 64.602, kg, PRN B radycardia, Start date: 05/29/15 15:36:00, Duration: 3 doses or times, Stop date : Limited # of times Notes: (Same as: Robinul) Start Date: 05/29/15 Stop Date: 05/29/15 Status: Discontinued hydrALAZINE 10 mg, 0.5 mL, Route: IVP, Drug form: INJ, Q20Min, Dosing Weight 64.602, kg, PRN Elevated BP, Start date: 05/29/15 15:36:00, Duration: 2 doses or times, Stop da te: Limited # of times Notes: (Same as: Apresoline)Push over 5 minutes Start Date: 05/29/15 Stop Date: 05/29/15 Status: Discontinued hydromorphone 0.5 mg, 0.25 mL, Route: IVP, Drug form: INJ, Q5Min, Dosing Weight 64.602, kg, NH N Pain Score 7-10, Start date: 05/29/15 15:36:00, Duration: 4 doses or times, St op date: Limited # of times Notes: (Same as: Dilaudid) Start Date: 05/29/15 Stop Date: 05/29/15 Status: Discontinued labetalol 10 mg, 2 mL, Route: IVP, Drug form: INJ, Q5Min, Dosing Weight 64.602, kg, PRN El evated BP, Start date: 05/29/15 15:36:00, Duration: 5 doses or times, Stop date: Limited # of times Notes: (Same as: Normodyne, Trandate)Push over 2 minutes Give bolus over 2-3 mi nutes. Start Date: 05/29/15 Stop Date: 05/29/15 Status: Discontinued Lactated Ringers Injection IV 1,000 mL 1,000 mL, Rate: 125 ml/hr, Infuse over: 8 hr, Route: IV, Dosing Weight 64.602 kg , Total Volume: 1,000, Start date: 05/29/15 15:36:00, Duration: 30 day, Stop alexei e: 06/28/15 15:35:00 Start Date: 05/29/15 Stop Date: 05/29/15 Status: Discontinued LR IV 1,000 mL 1,000 mL, Rate: 75 ml/hr, Infuse over: 13.3 hr, Route: IV, Dosing Weight 64.602 kg, Total Volume: 1,000, Start date: 05/29/15 15:10:00, Duration: 30 day, Stop d ate: 06/28/15 15:09:00 Start Date: 05/29/15 Stop Date: 06/01/15 Status: Discontinued meperidine 12.5 mg, 0.25 mL, Route: IVP, Drug form: INJ, Q30Min, Dosing Weight 64.602, kg, PRN Other -See Comment, For shivering, Start date: 05/29/15 15:36:00, Duration: 2 doses or times, Stop date: Limited # of times Notes: (Same As: Demerol) Start Date: 05/29/15 Stop Date: 05/29/15 Status: Discontinued morphine 1 mg/ml AQUARIUM TANK ATTENDANT (30 mg/30 mL) INJ Syringe 30 mg 30 mg, 30 mL, Route: IV, Initial Loading Dose: 2 mg, AQUARIUM TANK ATTENDANT Dose: 1 mg, AQUARIUM TANK ATTENDANT Lockou t: 10 minutes, Continuous Basal Rate: 0 mg, 4 Hour Limit (In MG): 30, Drug Form: INJ, Continuous, Start date: 05/29/15 15:30:00, Duration: 30 day, Stop date: 15:2... Notes: Dose: Delay: Basal rate: 4hr limit:( Same as:Nohelia) Start Date: 05/29/15 Stop Date: 05/31/15 Status: Discontinued morphine Sulfate 2 mg, 1 mL, Route: IVP, Drug form: INJ, Q5Min, Dosing Weight 64.602, kg, PRN Bayron n Score 4-6, Start date: 05/29/15 15:36:00, Duration: 5 doses or times, Stop alexei e: Limited # of times Notes: (Same as:MORPhine Sulfate) Start Date: 05/29/15 Stop Date: 05/29/15 Status: Discontinued morphine Sulfate 2 mg, 1 mL, Route: IVP, Drug form: INJ, Q2H, Dosing Weight 64.602, kg, PRN Pain Score 1-5, Start date: 05/31/15 10:46:00, Duration: 30 day, Stop date: 06/30/15 10:45:00 Notes: (Same as:MORPhine Sulfate) Start Date: 05/31/15 Stop Date: 06/01/15 Status: Discontinued naloxone 0.04 mg, 0.1 mL, Route: IVP, Drug form: INJ, Q2MIN, Dosing Weight 64.602, kg, NH N Narcotic Reversal, Start date: 05/29/15 15:11:00, Duration: 30 day, Stop date: 06/28/15 15:10:00 Notes: Same as Narcan Start Date: 05/29/15 Stop Date: 05/31/15 Status: Discontinued naloxone 0.04 mg, 0.1 mL, Route: IVP, Drug form: INJ, Q2MIN, Dosing Weight 64.602, kg, NH N Narcotic Reversal, Start date: 05/29/15 15:36:00, Duration: 8 doses or times, Stop date: Limited # of times Notes: Same as Narcan Start Date: 05/29/15 Stop Date: 05/29/15 Status: Discontinued Bearden 10/325 oral tablet 1 tab, Route: PO, Drug Form: TAB, Dosing Weight 64.602, kg, Q4H, PRN Pain Score 1-3, Start date: 05/29/15 15:11:00, Duration: 30 day, Stop date: 06/28/15 15:10: 00 Notes: Do not exceed 4gm/day of acetaminophen. (Same as: Bearden 325/10) Start Date: 05/29/15 Stop Date: 06/01/15 Status: Discontinued Bearden 10/325 oral tablet 1 tab, PO, TID, PRN Pain, X 30 day, # 90 day, 0 Refill(s), given to patient Start Date: 06/01/15 Stop Date: 07/01/15 Status: Ordered ondansetron 4 mg, 2 mL, Route: IVP, Drug form: INJ, ONCE, Dosing Weight 64.602, kg, PRN Naus ea & Vomiting, Start date: 05/29/15 15:36:00 Notes: (Same as: Zofran) MEDICATION WASTE Product Size: 4 mgProduct Was amna: ___ mg Start Date: 05/29/15 Stop Date: 05/29/15 Status: Discontinued promethazine + Sodium Chloride 0.9% IV 50 mL 6.25 mg, 0.25 mL, Route: IVPB, ONCE, Dosing Weight 64.602, kg, PRN Nausea & Vomiting, Start date: 05/29/15 15:36:00 Notes: Do not give IV push. (Same as: Phenergan) Start Date: 05/29/15 Stop Date: 05/29/15 Status: Discontinued Robaxin + Dextrose 5% in Water IV 100 mL 750 mg, 7.5 mL, Route: IV, Q6H, Dosing Weight 64.602, kg, PRN Muscle Spasms, Sta rt date: 05/29/15 15:11:00, Duration: 30 day, Stop date: 06/28/15 15:10:00 Notes: (Same as:Robaxin) Start Date: 05/29/15 Stop Date: 06/01/15 Status: Discontinued Soma 350 mg oral tablet 350 mg=1 tab, PO, QID, 0 Refill(s) Start Date: 05/27/15 Stop Date: 06/01/15 Status: Discontinued Unknown Home Medication fat burner 1 tab, PO, Every Other Day, Refill(s) 0 Start Date: 05/27/15 Stop Date: 06/01/15 Status: Discontinued Unknown Home Medication hydroxycut 1 tab, PO, Every Other Day, Refill(s) 0 Start Date: 05/27/15 Stop Date: 06/01/15 Status: Discontinued Zofran 4 mg, 2 mL, Route: IV, Drug form: INJ, Q6H, Dosing Weight 64.602, kg, PRN Nausea , Start date: 05/29/15 15:11:00, Duration: 30 day, Stop date: 06/28/15 15:10:00 Notes: (Same as: Zofran) MEDICATION WASTE Product Size: 4 mgProduct Was amna: ___ mg Start Date: 05/29/15 Stop Date: 06/01/15 Status: Discontinued Results ELECTROLYTES Most recent to 1 oldest [Reference Range]: Sodium Lvl [135-145 140 mEq/L mEq/L] (05/27/15 11:38 AM) Potassium Lvl 3.7 mEq/L [3.5-5.1 mEq/L] (05/27/15 11:38 AM) Chloride Lvl [95-109 105 mEq/L mEq/L] (05/27/15 11:38 AM) CO2 [24-32 mEq/L] 27 mEq/L (05/27/15 11:38 AM) AGAP [10.0-20.0 11.7 mEq/L mEq/L] (05/27/15 11:38 AM) CHEM PANEL Most recent to 1 oldest [Reference Range]: Creatinine Lvl 0.8 mg/dL [0.5-1.4 mg/dL] (05/27/15 11:38 AM) eGFR 84 mL/min/1.73m2 1 *NA* (05/27/15 11:38 AM) BUN [7-22 mg/dL] 14 mg/dL (05/27/15 11:38 AM) Glucose Lvl [70-99 156 mg/dL mg/dL] *HI* (05/27/1538 AM) Calcium Lvl 9.0 mg/dL [8.5-10.5 mg/dL] (05/27/15 11:38 AM) 1Result Comment: The eGFR is calculated using [...] be mul tiplied by the estimated BMI. HEMATOLOGY Most recent to 1 oldest [Reference Range]: WBC [3.7-10.4 K/CMM] 5.5 K/CMM (05/27/15 11:38 AM) RBC [4.20-5.40 4.03 M/CMM M/CMM] *LOW* (05/27/15:38 AM) Hgb [12.0-16.0 g/dL] 12.9 g/dL (05/27/15 11:38 AM) Hct [36.0-48.0 %] 38.3 % (05/27/15 11:38 AM) MCV [80.0-98.0 fL] 94.9 fL (05/27/15 11:38 AM) MCH [27.0-31.0 pg] 31.9 pg *HI* (05/27/15:38 AM) MCHC [32.0-36.0 33.6 g/dL g/dL] (05/27/15 11:38 AM) RDW [11.5-14.5 %] 12.7 % (05/27/15 11:38 AM) Platelet [133-450 209 K/CMM K/CMM] (05/27/15 11:38 AM) MPV [7.4-10.4 fL] 8.6 fL (05/27/1538 AM) Segs [45.0-75.0 %] 58.8 % (05/27/15:38 AM) Lymphocytes 32.9 % [20.0-40.0 %] (05/27/1538 AM) Monocytes [2.0-12.0 6.3 % %] (05/27/1538 AM) Eosinophils [0.0-4.0 1.5 % %] (05/27/1538 AM) Basophils [0.0-1.0 0.5 % %] (05/27/1538 AM) Segs-Bands # 3.2 K/CMM [1.5-8.1 K/CMM] (05/27/15:38 AM) Lymphocytes # 1.8 K/CMM [1.0-5.5 K/CMM] (05/27/1538 AM) Monocytes # [0.0-0.8 0.3 K/CMM K/CMM] (05/27/15 11:38 AM) Eosinophils # 0.1 K/CMM [0.0-0.5 K/CMM] (05/27/15 1138 AM) Macrocyte [None 1+ Seen] *ABN* (05/27/15:38 AM) PT [12.0-14.7 12.5 seconds seconds] (05/27/15:38 AM) INR [0.85-1.17] 0.94 (05/27/15 11:38 AM) PTT [22.9-35.8 29.0 seconds seconds] (05/27/15 11:38 AM) Immunizations No data available for this section Procedures Procedure Date Related Diagnosis Body Site section Fusion of joint of lumbar spine with internal fixation by posterior approach Lumbar epidural injection Open reduction and fixation of fracture1 1Left wrist Social History Social History Type Response Alcohol Current Smoking Status Light tobacco smoker; Type: Cigarettes; Exposure to Tobacco Smoke None; Cigarette Smoking Last 365 Days Yes; Reg Smoking Cessation Counseling Yes Assessment and Plan Extracted from: Title: Progress Note Author: Chavo Etienne MD Date: 06/01/15 Progress Note - Daily [facility] Completed: May, 13:58 by Chavo Etienne MD RM: [phone] - [id number], NAA [id number] (: 1960) F Attending: Chavo Etienne MDPhone: Service: Neurosurgery Service Reason for Admission: 33233, 42932 (X3), 42953, 84045, 10785--KHPDUKOH DISC D Working DRG: Cervical spinal fusion w/o CC/SHELTER Code status: None Specified=FULL CODECurrent diet: Regular Isolation: None Documented Allergies: NKDA, NKFA, Tape SUBJECTIVE: Patient doing well postoperatively. Pain control adequate. Some dysphagia, however patient is able to tolerate oral intake. Patient voiding. Patient ambulating. OBJECTIVE: General: NAD; patient resting in bed Incison: JESS, CDI, dermabond intact, no redness, no swelling, no drainage Neuro: Awake, alert, and oriented x3. Speech is fluent. Pupils equal, round, and reactive to light. Extraoccular movements intact. Cranial nerves 2-12 grossly intact bilaterally. Sensation is intact to light touch in upper and lower extremities bilaterally. Strength: Deltoids: (R) 5/(L) 5 Biceps: (R) 5/(L) 5 Triceps: (R) 5/(L) 5 Wrist Flexors: (R) 5/(L) 5 Intrinsics: (R) 5/(L) 5 Iliopsoas: (R) 5/(L) 5 Quadriceps: (R) 5/(L) 5 Tibialis Anterior: (R) 5/(L) 5 Extensor hallucus longus: (R) 5/(L) 5 Gastrocnemius: (R) 5/(L) 5 VitalsTmp(F)[id number] 06/01 11:0097.43647/[id number]--- 06/01 07:0097.58542/281643--- 06/01 06:00----81-----1297 2.0L/m 06/01 05:00----90-----791--- 06/01 04:[id number]--- 24 Hr Tmax: 100.9F (38.28c) at 06/01 04:00Vital Signs are the last 5 in the past 48 hours. DateWt(kg)Wt(lb)Ht(cm)Ht(in)Method 05/27 (initial) 64.60 142.12Measured 52.40 60.00Stated I&ORecordInOutBal 4hr Tot 54 0 54 2924hr Tot 2761 0 2761 Medications (12) Active Scheduled Meds (4): 05/29/15 dicyclomine (Bentyl) 20 mg PO QID 05/30/15 diltiazem (Cartia XT) 180 mg PO Daily 05/29/15 docusate (Colace 100 mg oral capsule) 100 mg PO BID 05/30/15 furosemide (furosemide 20 mg oral tablet) 20 mg PO Daily Unscheduled Meds: None PRN Meds (7): 05/29/15 acetaminophen-hydrocodone (Bearden 10/325 oral tablet) 1 tab PO Q4H 05/29/15 cyclobenzaprine (Flexeril) 10 mg PO TID 05/29/15 diphenhydrAMINE 25 mg PO TID 05/29/15 methocarbamol + Dextrose 5% in Water IV 100 mL (Robaxin + Dextrose 5% in Water IV 100 mL) 750 mg IV Q6H 107.5 ml/hr 05/31/15 morphine Sulfate 2 mg IVP Q2H 05/29/15 ondansetron (Zofran) 4 mg IV Q6H 05/29/15 phenol topical (Chloraseptic 1.4% spray) 1 spray TOP Q2H One Time Meds: None Continuous Infusions (1): 05/29/15 Lactated Ringers Injection IV 1,000 mL (LR IV 1,000 mL) 1,000 mL 75 ml/hr ASSESSMENT: 1. C3-C7 disc displacement/stenosis status post a C3-C7 anterior discectomy and instrumented interbody fusion - POD #3 PLAN & TREATMENT: 1. Patient doing well postoperatively. 2. Pain control adequate. 3. Patient voiding and ambulating. 4. Patient stable for discharge. Discharge home today. Discharge Instructions: 1. Discharge: Home 2. Diet: Resume pre-operative diet 3. Activity: Up as tolerated. No lifting greater than 10 pounds. Avoid any strenuous activity. Avoid any repetitive twisting of the neck. 4. Incision: May shower without a dressing on the incision. Avoid submerging the incision in a tub, swimming pool, or hot tub for 2 weeks. 5. Use soft cervical collar as needed for cervical pain and/or neck stiffness/soreness. 6. Discharge medications: Bearden (10/325) 1 tablet tid prn pain #90; Cyclobenzaprine (10mg) 1 tablet tid prn muscle spasms #90 7. Resume home medications as specificied in the Medication Reconciliation list. 8. Follow-up in the Neurosurgery clinic in 4 weeks. Contact the Neurosurgery office at telephone number [phone] to schedule appointment. 9. Contact the Neurosurgery office for any questions regarding neurosurgical issues especially for: development of any new neurological symptoms, any drainage from the incision, or for a temperature greater than 101.5. Extracted from: Title: Operative Report Author: Chavo Etienne MD Date: 05/29/15 OP PATIENT NAME: JEFE JUNG DATE OF OPERATION/PROCEDURE: 05/29/2015 PREOPERATIVE DIAGNOSES Neck pain and associated, right greater than left, bilateral upper extremity pain, paraesthesias, and subjective weakness with radiographic studies of the cervical spine demonstrating the presence of diffuse spondylitic changes and a significant kyphosis centered over the C3 through C6 segments with a disc bulge/osteophyte complex noted at C2-3, C3-4, C4-5, C5-6, and C6-7 which resulted in abutment of the spinal cord centrally as well as moderate left foraminal stenosis at C2-3, abutment of the spinal cord without associated stenosis at C3-4, abutment/compression of the spinal cord as well as severe bilateral foraminal stenosis at C4-5 and C5-6, and abutment/compression of the spinal cord as well as moderate central canal stenosis and severe bilateral foraminal stenosis at C6-7 with signal change noted in the spinal cord at C6-7. (ICD: 723.1, 723.4, 723.0, 722.71, 737.10, and 721.1) POSTOPERATIVE DIAGNOSES Neck pain and associated, right greater than left, bilateral upper extremity pain, paraesthesias, and subjective weakness with radiographic studies of the cervical spine demonstrating the presence of diffuse spondylitic changes and a significant kyphosis centered over the C3 through C6 segments with a disc bulge/osteophyte complex noted at C2-3, C3-4, C4-5, C5-6, and C6-7 which resulted in abutment of the spinal cord centrally as well as moderate left foraminal stenosis at C2-3, abutment of the spinal cord without associated stenosis at C3-4, abutment/compression of the spinal cord as well as severe bilateral foraminal stenosis at C4-5 and C5-6, and abutment/compression of the spinal cord as well as moderate central canal stenosis and severe bilateral foraminal stenosis at C6-7 with signal change noted in the spinal cord at C6-7. (ICD: 723.1, 723.4, 723.0, 722.71, 737.10, and 721.1) OPERATIVE PROCEDURE: 1. C3-C4, C4-C5, C5-C6, and C6-C7 anterior diskectomy and interbody fusion utilizing [employer] ACDF allograft interbody spacers augmented with Vitoss as well as bone marrow aspirate harvested from the left anterior iliac crest utilizing the [employer]-SensorCath bone marrow aspirate system. (CPT: 05343, 07541 x 3, 46770, and 26331) 2. Anterior cervical plating extending from C3 to C7 utilizing a [employer] Aviator plate. (CPT: 48474) SURGEON Chavo Etienne MD ILLUSTRATOR SET RUPALI Anderson ANESTHESIA Total IV anesthesia ESTIMATED BLOOD LOSS: 125 mL. INDICATIONS FOR PROCEDURE: The patient is a 54-year-old, right handed, female who has been followed in the neurosurgery clinic since May 16, 2012. The patient's history, clinical examination findings, as well as the results of radiographic studies have been extensively detailed within the patient's medical record. During the course of the patient's evaluation and treatment in the neurosurgery clinic, the patient is noted to have undergone a L3-S1 decompression and instrumented interbody fusion procedure on May 31, 2012 for symptoms of axial and mechanical low back pain, and associated right greater the left bilateral lower extremity pain and paresthesias, with the patient noted to be status post 3 lumbar operative procedures at the L4-5 segment, with pre-operative radiographic studies of the lumbar spine having demonstrated the presence of spondylitic changes focally at the L3-4 through L5-S1 lumbar disk space segments with a grade 1 spondylolisthesis noted at L3-4 which, in conjunction with a disk bulge/disk herniation as well as associated hypertrophied ligamentous tissue and facet arthropathy, resulted in severe central canal stenosis as well as severe bilateral foraminal stenosis at L3-4 with a disk bulge/disk herniation also noted at L5-S1, which in conjunction with associated facet arthropathy and hypertrophied ligamentous tissue resulted in moderate to severe bilateral foraminal stenosis at L5-S1. The patient is noted to have done well following her lumbar operative procedure with the patient ultimately experiencing improvement in her pre-operative symptoms. The patient has also been followed in the neurosurgery clinic for symptoms that have included neck pain and associated, right greater than left, bilateral upper extremity pain, paraesthesias, and subjective weakness. Radiographic studies reviewed as part of the patient's evaluation regarding her cervical and upper extremity symptoms included 2 MRI scans of the cervical spine. The images demonstrated the presence of diffuse spondylitic changes as manifested by the presence of signal change within all cervical disc space segments. A significant kyphosis was noted in the cervical spine centered over the C3 through C6 segments. At C2-3 the images demonstrated the presence of a disc bulge/osteophyte complex which resulted in abutment of the spinal cord centrally as well as moderate left foraminal stenosis. At C3-4 the images demonstrated the presence of a disc bulge/osteophyte complex which resulted in abutment of the spinal cord without associated stenosis. At C4-5 the images demonstrated the presence of a disc bulge/osteophyte complex which resulted in abutment/compression of the spinal cord as well as severe bilateral foraminal stenosis. At C5-6 the images demonstrated the presence of a disc bulge/osteop hyte complex which resulted in abutment of the spinal cord as well as severe bilateral foraminal stenosis. At C6-7 the images demonstrated the presence of a disc bulge/osteophyte complex which resulted in abutment/compression of the spinal cord as well as moderate central canal stenosis and severe bilateral foraminal stenosis. Signal change was noted in the spinal cord at C6-7. Loss of disc space height was noted at C4-5, C5-6, and C6-7. With regards to the patient's cervical pathology and associated symptoms, both nonoperative and operative treatment options were discussed with the patient. With regards to possible operative intervention, risks and benefits of surgery were thoroughly discussed with the patient. The potential risks of operative intervention discussed with the patient included but were not limited to the general operative risks of , bleeding, and infection. In addition, the patient was advised that surgical procedures involving this segment of the spine could also result in paralysis, loss of bowel and bladder function, loss of sexual function, as well as changes in sensation in the extremities that could include pain, numbness, tingling and burning which could be temporary or permanent. The patient was advised of the possibility of a spinal fluid leak, which could require additional intervention. The patient was advised that with a fusion procedure, she may experience a reduction in the range of motion in her cervical spine. The patient was advised that with an anterior approach to the cervical spine, there is the possibility of injury to the esophagus, resulting in difficulty with swallowing which could require additional intervention. The patient was advised of the possibility of injury to one of the nerves supplying the voice apparatus resulting in changes in the quality of her voice. The patient was advised of the possibility of injury to the major blood vessels in the neck resulting in a stroke and its ensuing complications. The patient was c ounseled that the surgical procedure may fail to relieve her symptoms or could potentially make her symptoms worse. The potential benefit of operative intervention would be to achieve a reduction in the severity of the patient's symptoms. The patient is noted to have expressed her general understanding of the nature of her underlying cervical pathology as well as the potential treatment options for this pathology. The patient is also noted to have expressed her general understanding of the nature of the risks and benefits associated with possible operative intervention. After considering the various treatment modalities discussed, the patient ultimately is noted to have expressed her desire to pursue operative intervention. Appropriate consent for the operative procedure was obtained. The patient is thus taken to the operating room at this time for the above-described anterior cervical diskectomy and instrumented interbody fusion procedure. DESCRIPTION OF PROCEDURE: The patient was brought to the operating room. The patient was transferred to the operative table in a supine position. The patient was administered the appropriate preanesthetic agents. The patient was intubated and initially placed under general endotracheal anesthesia. During the subsequent diskectomy and interbody fusion aspects of the operative procedure, the patient's anesthetic state was maintained with total IV anesthesia. The anesthesia staff acquired the appropriate vascular access on the patient. The patient was administered preoperative IV antibiotics. A Tracy catheter was inserted. Sequential compression stockings were placed on the patient's distal bilateral lower extremities. The patient was connected to electrodes for monitoring of motor evoked and somatosensory evoked potentials throughout the operative procedure. The patient was appropriately positioned on the operative table. All contact areas were inspected to ensure there was proper padding. Prior to beginning the cervical discectomy and interbody fusion portions of the operative procedure, attention was directed at harvesting the bone marrow aspirate to be later used during the interbody fusion portion of the operative procedure. As such, the left anterior iliac crest region was then prepped and draped in the usual sterile fashion. Utilizing digital palpation, the anterior left iliac crest was identified. A Jamshidi needle supplied by the Res-Q bone marrow aspirate system was then inserted into the skin in the area of the anterior superior left iliac crest. The Jamshidi needle was advanced through the subcutaneous tissue and eventually docked at the superior rim of the left anterior iliac crest. The Jamshidi needle was then impacted into the superior aspect of the left anterior iliac crest until the tip of the Jamshidi needle had sufficiently penetrated the left iliac crest in order to facilitate harvesting of the bone marrow aspirate. A syringe was then connected to the Jamshidi needle and approximately 60 mL of bone marrow aspirate was obtained from the left anterior iliac crest. The aspirated bone marrow was passed off the operative field to a transfusion specialist to be appropriately processed to be later used during the fusion portion of the operative procedure. The Jamshidi needle was then removed from its point of insertion in the left anterior superior iliac crest. A sterile dressing was applied at the puncture site in the skin. The patient's cervical region was then prepped and draped in the usual sterile fashion. A transverse incision was then made on the left side of the patient's neck at approximately the level of the C5 vertebra to facilitate access to the C3 through C7 cervical segments. The cricoid cartilage and laryngeal cartilage were used as external landmarks in determining the site for the surgical incision. The surgical incision was made sharply in the skin with a #15 blade. Utilizing the monopolar cautery, the surgical incision was extended through the subcutaneous tissue to the level of the platysma muscle. The skin margins were undermined utilizing Metzenbaum scissors. The underlying platysma muscle was then identified and subsequently divided in a manner parallel to the overlying skin incision. The platysma muscle tissue margins were undermined utilizing Metzenbaum scissors. A self-retaining retractor was placed in the surgical incision to allow for adequate retraction of the skin and platysma muscle tissue margins. The underlying sternocleidomastoid muscle was then identified. Utilizing both sharp and blunt dissection, a dissection plane was then developed along the medial border of the sternocleidomastoid muscle. This dissection plane was extended deeply until the anterior aspect of the vertebral column was reached. The carotid artery and structures of the carotid sheath were identified and retracted laterally while the esophagus and trachea were identified and retracted medially with the aid of hand-held retractors. Prevertebral fascia overlying the anterior aspect of the vertebral column was dissected utilizing Kitners. Once appropriate exposure of the anterior aspect of the vertebral column had been achieved, an intraoperative radiographic study was obtained in order to verify the appropriate operative segments. Once the appropriate operative segments had been identified and verified, the longus colli muscles on the right and left were then reflected laterally off of the C3, C4, C5, C6, and C7 vertebral bodies bilaterally in a subperiosteal fashion utilizing the monopolar cautery. The Reyes-Zimmer self-retaining retractor system was then placed within the surgical incision in order to allow for adequate retraction of the longus colli muscles as well as the overlying soft tissue. The retractor blades of the Reyes-Zimmer self-retaining retractor system were repositioned during the course of the operative procedure as the diskectomy and interbody fusion was accomplished at each of the targeted operative cervical disk space segments. Once appropriate exposure of the anterior aspect of the vertebral column had been achieved, attention was subsequently directed towards accomplishing the diskectomy and interbody fusion aspects of the operative procedure. The operating microscope was draped and brought into position within the operative field in order to provide for microscopic visualization of the surgical site. The remaining portions of the operative procedure were accomplished utilizing microscopic visualization. Utilizing the techniques described below, a diskectomy and interbody fusion was then accomplished at each of the targeted operative cervical disk space segments. It is noted that a complete diskectomy and interbody fusion was accomplished at each of the targeted operative cervical disk space segments prior to proceeding to the diskectomy and interbody fusion at the adjacent operative cervical disk space segments. Initially in accomplishing the diskectomy aspect of the operative procedure, a distraction pin was then placed in the vertebral body above and below the targeted operative cervical disk space segment. A self-retaining distractor was placed over the distraction pins. A distractive force was then applied across the targeted operative cervical disk space segment. A #11 blade was then used to incise the disk space at the targeted operative cervical disk space segment. The patient was noted to have significant loss of disk space height at the C4-5, C5-6, and C6-7 cervical disk space segments with severe degenerative changes noted within the residual disk at each of these targeted operative cervical disk space segments. Subsequently, utilizing various curettes, various pituitary rongeurs, various Kerrison rongeurs, as well as the [employer] drill with an AM8 bit, the diskectomy at the targeted operative cervical disk space segment was then extended posteriorly to the level of the posterior longitudinal ligament. Resection of disk material was extended to the right and left lateral aspects of the disk space in order to ensure that a complete diskectomy was accomplished. Utilizing a micro nerve hook, a micropituitary rongeur, as well as the #1 and #2 Kerrison rongeurs, the posterior longitudinal ligament at the targeted operative cervical disk space segment was then resected. Resection of the posterior longitudinal ligament as well as the overlying disk material was extended to the right and left lateral aspects of the disk space in order to ensure that a complete diskectomy was accomplished and appropriate decompression of the spinal canal was achieved. Following the discectomy aspect of the operative procedure excellent central decompression of the spinal canal was achieved at each of the targeted operative disc space segments. The patient was noted to have significant bilateral foraminal stenosis at the C4-5, C5-6, and C6-7 segments secondary to prominent lateral osteophytes at these segments. At C3-4 the patient was noted to have at least moderate bilateral foraminal stenosis. Utilizing the #1 and #2 Kerrison rongeurs, bilateral anterior foraminotomies were then accomplished at each of the targeted operative cervical disk space segments. A micro nerve hook was used to identify the pedicles bilaterally at each of the targeted operative cervical disk space segments as well as the associated neural foramen in order to ensure that appropriate decompression of the exiting nerve roots was achieved bilaterally at each of the targeted operative cervical disk space segments. A portion of the proximal aspect of the exiting nerve root was identified bilaterally at each of the targeted operative cervical disk space segments. Ultimately upon completion of the diskectomy and anterior foraminotomy aspects of the operative procedure, excellent decompression of the neural elements was achieved at each of the targeted operative cervical disk space segments. Utilizing the techniques described above, a complete diskectomy was then accomplished at the C3-4, C4-5, C5-6, and C6-7 cervical disk space segments. Upon completion of the diskectomy and anterior foraminotomy aspects of the operative procedure, the disk space was copiously irrigated. Meticulous hemostasis was accomplished utilizing the bipolar cautery as well as Surgiflo. Attention was then directed towards accomplishing the interbody fusion portion of the operative procedure. Utilizing the various sizing trials supplied with the Synthes ACDF spacer system, an appropriately sized interbody spacer was then identified for each of the targeted operative cervical disk space segments. Subsequently, an appropriately sized Synthes ACDF allograft interbody spacer was then rehydrated with bone marrow aspirate harvested from the left anterior iliac crest. In addition, Vitoss was rehydrated with bone marrow aspirate harvested from the left anterior iliac crest. The bone marrow aspirate augmented Vitoss was then packed within the inner hollow core of the Synthes ACDF allograft interbody spacer. Subsequently, an appropriately sized Synthes ACDF allograft interbody spacer augmented with Vitoss as well as bone marrow aspirate was then impacted into the targeted operative cervical disk space segment. The interbody spacer was seated approximately 1-mm below the anterior margins of the vertebral body above and below the targeted operative cervical disk space segment. The distra ctive force that had been applied across the targeted operative cervical disk space segment was then released. The interbody spacer was inspected to ensure that it was appropriately seated between the vertebral body above and below the targeted operative cervical disk space segment. The self-retaining distractor was then removed from the distraction pins. The distraction pins were then removed from the vertebral bodies in a sequential fashion as the diskectomy and interbody fusion was accomplished at each of the targeted operative cervical disk space segments. Utilizing the techniques described above, an interbody fusion was then accomplished at the C3-4, C4-5, C5-6, and C6-7 cervical disk space segments. At C3-4, a 7-mm Synthes ACDF allograft interbody spacer was utilized. At C4-C5, a 6-mm Synthes ACDF allograft interbody spacer was utilized. At C5-C6, a 6-mm Synthes ACDF allograft interbody spacer was utilized. At C6-C7, a 6-mm Synthes ACDF allograft interbody spacer was utilized. Once the interbody fusion portion of the operative procedure had been completed, attention was then directed towards accomplishing the anterior cervical plating portion of the operative procedure. It was determined that a 64-mm plate provided the appropriate coverage for the span extending from C3 to C7. Subsequently, a 64-mm Garden Aviator plate was then secured to the C3, C4, C5, C6, and C7 vertebral bodies by placing two 4.0 x 12 mm screw in each vertebral body. Good purchase was obtained with placement of each of the vertebral body screws. Once all vertebral body screws had been appropriately placed, the back-out mechanism intrinsic within the Yoandy Aviator plating system was then engaged at each of the targeted operative vertebral segments in accordance with wallcovering hanger guidelines. A final postoperative radiographic study was obtained. To the extent that the spinal column was visualized, this radiographic study demonstrated good placement of the plate, screws, and interbody spacers. Attention was then directed towards closing the surgical site. The surgical site was copiously irrigated. Meticulous hemostasis was accomplished utilizing the bipolar cautery as well as the monopolar cautery. The surgical incision was then closed in multiple layers. Initially, the platysma muscle tissue layer was reapproximated with interrupted 3-0 Vicryl suture. The deep dermal layer was reapproximated with interrupted 3-0 Vicryl suture. The skin was reapproximated utilizing Dermabond. The patient was subsequently transferred to a hospital bed in a supine position. A soft cervical collar was applied to the patient's neck. The patient was awakened fro m anesthesia. Upon regaining consciousness, the patient was noted to move her extremities in a manner similar to her preoperative state. The patient was taken to the recovery room for routine postoperative monitoring. At the conclusion of the operative procedure, all needle, sponge, and instrument counts were correct. Throughout the operative procedure, motor evoked and somatosensory evoked potentials were monitored. There were no reported changes in these monitoring modalities throughout the operative procedure. Completed by: CHAVO ETIENNE MD Extracted from: Title: History and Physical Author: Chavo Etienne MD Date: 05/29/15 History and Physical Present Complaint: Neck pain and associated, right greater than left, bilateral upper extremity pain, paraesthesias, and subjective weakness. Past History Pertinent Surgeries: 1. (1984) 2. Left wrist surgery (1995) 3. L4 and L5 decompression and non-instrumented lumbar fusion ([address] JENNIFER Morataya) 4. L4-L5 instrumented fusion ([address] JENNIFER Morataya) 5. Removal of lumbar hardware ([address] JENNIFER Morataya) 6. Left ankle ORIF (2007) 7. Removal of left ankle hardware 8. L3-S1 decompression and instrumented interbody fusion (05/31/[address] Etienne) Pertinent Medical Illness: 1. HTN Current Medications: Refer to Medication Reconciliation List for a complete list of medications. Allergies: No Known Drug Allergies Tobacco use: light smoker Alcohol use: None Physical Examination General: Patient lying supine in a hospital bed in no acute distress. Neurologic: Awake, alert, and oriented x3. Speech is fluent. Pupils equal, round, and reactive to light. Extraoccular movements intact. Cranial nerves 2- 12 grossly intact bilaterally. Sensation is intact to light touch in the left upper and left lower extremities. Sensation is diminished to light touch in the right upper and right lower extremities. Strength: Deltoids: (R) 5/(L) 5 Biceps: (R) 5/(L) 5 Triceps: (R) 5/(L) 5 Wrist Extensors: (R) 5/(L) 5 Laboratory Helper Strength: (R) 5/(L) 5 Laboratory Helper: (R) 5/(L) 5 Iliopsoas: (R) 5/(L) 5 Quadriceps: (R) 5/(L) 5 Tibialis Anterior: (R) 5/(L) 5 Extensor Hallucus Longus: (R) 5/(L) 5 Gastrocnemius: (R) 5/(L) 5 HEENT: Atraumatic, normocephalic cranium. Eyes and ears symmetric. No drainage from the ears or nose. Inspection of the oral cavity reveals the oral mucosa to be normal. Neck: Supple. No carotid bruits auscultated. Cardiac: Regular rate and rhythm without murmur. Pulmonary: Lungs clear to auscultation. Gastrointestinal: Abdomen soft, non-tender, non-distended, with normal active bowel sounds. Musculoskeletal: No clubbing, cyanosis, or edema. Integument: No significant skin rashes or skin lesions on exposed surfaces. Impression: C3-C7 disc displacement/stenosis. Treatment Plan: To OR today for a C3-C7 anterior discectomy and instrumented interbody fusion.
--- OUTSIDE RECORDS SUMMARY | 2019-01-04 06:31 | XMS REPORT | Continuity of Care Document ---
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 Name Role Phone Jameel VEGA, Margarito REED Unavailable Insurance Providers Payer name Policy type / Coverage type Policy ID Covered democrat ID Policy [employer] [employer] [place] [employer] [place]MEDIC[place] [employer] [place] [employer] REPLA Encounters Encounter Performer Location Date Office Visit Margarito Jorgensen MD [facility] [place] [facility] May 14, 2015 Problems Problem Effective Dates Problem Status ACQUIRED SPONDYLOLISTHESIS Jun 13, 2012 Inactive HERNIATED LUMBAR DISC Jun 13, 2012 Inactive SPINAL STENOSIS, LUMBAR Jun 13, 2012 Inactive SPONDYLOSIS, LUMBAR Jun 13, 2012 Inactive SEROMA Jun 13, 2012 Inactive HISTORY OF HYPERTENSION Mar 17, 2015 Inactive TOBACCO USE DISORDER Mar 17, 2015 Inactive CERVICAL NECK PAIN Mar 17, 2015 Active CERVICAL DISC DISORDER W/MYELOPAT Mar 17, 2015 Active 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, 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 CERVICAL RADICULOPATHY Mar 17, 2015 Active CERVICAL SPONDYLOSIS WITH MYELOPATHY May 14, 2015 Active CERVICAL SPINAL STENOSIS May 14, 2015 Active Procedures Date Description Comments Mar 17, 2015 smoking status Current every day smoker Mar 17, 2015 smoking/tobacco cessation, patient education and counseling yes Mar 17, 2015 smoking status Current some day smoker Medications Medication Instructions Start Date Status NORCO 10-325 MG TABS TID Jun 13, 2012 Active NEURONTIN 300 MG CAPS 1 capsule by mouth at bedtime Jun 13, 2012 Inactive NEURONTIN CAP 300MG 1 PO TID Jun 27, 2012 Inactive NEURONTIN CAPS QHS Jul 25, 2012 Active NORCO 10-325 MG TABS 1 po Q 6 hours prn pain. Do not exceed 3 pills in 24 hours. Jul 25, 2012 Inactive SOMA 350 MG TABS TID Jul 25, 2012 Active CARTIA XT 180 MG [id number] QHS May 14, 2015 Active EFFEXOR XR [id number] daily May 14, 2015 Active Vital Signs Date Description Test Result Mar 17, 2015 weight E&M - 3141-9 WEIGHT 141 lb Mar 17, 2015 height E&M - 8302-2 HEIGHT 1246 in Mar 17, 2015 temperature E&M TEMPERATURE 98.1 deg f Mar 17, 2015 pulse rate E&M - 8867-4 PULSE RATE 62 /min Mar 17, 2015 blood pressure, systolic - 8480-6 BP SYSTOLIC 142 mm Hg Mar 17, 2015 blood pressure, diastolic - 8462-4 BP DIASTOLIC 89 mm Hg Mar 17, 2015 weight E&M - 3141-9 WEIGHT 141 lb May 14, 2015 weight E&M - 3141-9 WEIGHT 145 lb May 14, 2015 height E&M - 8302-2 HEIGHT 59 in May 14, 2015 temperature E&M TEMPERATURE 97.9 deg f May 14, 2015 pulse rate E&M - 8867-4 PULSE RATE 73 /min May 14, 2015 blood pressure, systolic - 8480-6 BP SYSTOLIC 126 mm Hg May 14, 2015 blood pressure, diastolic - 8462-4 BP DIASTOLIC 81 mm Hg
--- OUTSIDE RECORDS SUMMARY | 2019-01-04 06:31 | XMS REPORT | Continuity of Care Document ---
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 Name Role Phone Jameel VEGA, Margarito REED Unavailable Insurance Providers Payer name Policy type / Coverage type Policy ID Covered republican ID Policy [employer] [place] [employer]MEDIC[place] RE[place] [employer] [place] [employer] REPLA Encounters Encounter Performer Location Date Office Visit Margarito Jorgensen MD [facility] [place] [facility] [place] [facility] Mar 17, 2015 Problems Problem Effective Dates Problem Status ACQUIRED SPONDYLOLISTHESIS Jun 13, 2012 Active HERNIATED LUMBAR DISC Jun 13, 2012 Active SPINAL STENOSIS, LUMBAR Jun 13, 2012 Active SPONDYLOSIS, LUMBAR Jun 13, 2012 Active SEROMA Jun 13, 2012 Active HISTORY OF HYPERTENSION Mar 17, 2015 Active TOBACCO USE DISORDER Mar 17, 2015 Active CERVICAL NECK PAIN Mar 17, 2015 Active CERVICAL HNP W/O MYELOPHATHY Mar 17, 2015 Active 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, 2015 Active CERVICAL RADICULOPATHY Mar 17, 2015 Active Procedures Date Description Comments Mar 17, 2015 smoking status Current every day smoker Mar 17, 2015 smoking/tobacco cessation, patient education and counseling yes Medications Medication Instructions Start Date Status NORCO 10-325 MG TABS 1 tablet by mouth every 6 hours as needed for pain; not to exceed 3 tablets in 24 hours Jun 13, 2012 Active NEURONTIN 300 MG CAPS 1 capsule by mouth at bedtime Jun 13, 2012 Active NEURONTIN CAP 300MG 1 PO TID Jun 27, 2012 Active NEURONTIN CAP 600MG (GABAPENTIN) 1 PO TID Jul 25, 2012 Active NORCO 10-325 MG TABS 1 po Q 6 hours prn pain. Do not exceed 3 pills in 24 hours. Jul 25, 2012 Active SOMA 350 MG TABS one tab TID PRN muscle spasm Jul 25, 2012 Active Vital Signs Date Description Test Result [...]
--- OUTSIDE RECORDS SUMMARY | 2019-01-04 06:31 | XMS REPORT | Summary of Care ---
Author Author [facility] Organization [facility] Address Unknown Phone Unavailable Encounter NANY Real(NANCY) [id number] Date(s): 08/09/17 - 08/09/17 [facility] [id number] [place] [address]- Discharge Diagnosis: Acute flank pain Discharge Diagnosis: Acute UTI Discharge Diagnosis: Abdominal pain in female Discharge Disposition: Home or Self Care Attending Physician: Gladis Oliveros DO Vital Signs 1 2 3 Most recent to oldest [Reference Range]: 154.94 cm (08/09/17 4:14 PM) Height 98.6 DegF (08/09/17 10:27 PM) 98.2 DegF (08/09/17 4:14 PM) Temperature Oral [96.4-99.1 DegF] 146/74 mmHg *HI* (08/09/17 10:27 PM) 141/82 mmHg *HI* (08/09/17 6:35 PM) 170/66 mmHg *HI* (08/09/17 4:14 PM) Blood Pressure [90-140/60-90 mmHg] 18 BRMIN (08/09/17 10:27 PM) 19 BRMIN (08/09/17 6:35 PM) 20 BRMIN (08/09/17 4:14 PM) Respiratory Rate [14-20 BRMIN] 81 bpm (08/09/17 10:27 PM) 83 bpm (08/09/17 6:35 PM) 101 bpm *HI* (08/09/17 4:14 PM) Peripheral Pulse Rate [60-100 bpm] 63.636 kg (08/09/17 4:14 PM) Weight 26.51 m2 (08/09/17 4:14 PM) Body Mass Index Problem List Condition Effective [...] Active stenosis(Confirmed) Weakness(Confirmed) Active 1Data migrated from [employer] on 05/27/15. 2Data migrated from [employer] on 05/27/15. 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, Stop date: 08/09/17 16:16:00 [employer] 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 Notes: (Same as:MORPhine Sulfate) Start Date: 08/09/17 Stop Date: 08/09/17 Status: Completed morphine Sulfate 4 mg, Route: IVP, ONCE, Dosing Weight 63.636, kg, Start date: 08/09/17 18:57:00 [employer]ATIONS 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, Stop date: 08/09/17 18:57:00 [employer] 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 Start Date: 08/09/17 Stop Date: 08/09/17 Status: Discontinued [place] 10/325 oral tablet 1 tab, Route: PO, Drug Form: TAB, Dosing Weight 63.636, kg, ONCE, STAT, Start da te: 08/09/17 21:42:00 [employer] 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, Stop date: 08/09/17 21:42:00 [employer] 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 Start Date: 08/09/17 Stop Date: 08/09/17 Status: Completed NS (Bolus) IV 1,000 mL, 1,000 ml/hr, Infuse Over: 1 hr, Route: IV, ONCE, Priority: STAT, Dosin g Weight 63.636 kg, Start date: 08/09/17 18:57:00 [employer] 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, Duration: 1 doses or time s, Stop date: 08/09/17 18:57:00 [employer] 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 Start Date: 08/09/17 Stop Date: 08/09/17 Status: Discontinued ondansetron 4 mg, 2 mL, Route: IVP, Drug form: INJ, ONCE, Dosing Weight 65.909, kg, Priority : STAT, Start date: 08/09/17 16:16:00 [employer]ATIONS 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, Stop date: 08/09/17 16:16:00 [employer]ATIONS 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 Notes: (Same as: Zofrzaida) MEDICATION WASTE Product Size: 4 mgProduct Was amna: ___ mg Start Date: 08/09/17 Stop Date: 08/09/17 Status: Completed Pepcid 20 mg oral tablet 20 mg=1 tab, PO, BID, # 28 tab, 0 Refill(s) Start Date: 08/09/17 Stop Date: 08/23/17 Status: Ordered Rocephin + water for INJection, sterile 10 mL 1 gm, Route: IVP, ONCE, Dosing Weight 63.636, kg, Priority: STAT, Start date: 20:17:00 [employer] 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, Duration: 1 doses or times, Stop date: 08/09/17 20:17:00 CS T, ABX Indication: Urinary Tract Infection Notes: (Same As: Rocephin).Use with 100 mL NS and infuse over 30 min MEDICA TION WASTE Product Size: 1000 mgProduct Wasted: ___ mg Start Date: 08/09/17 Stop Date: 08/09/17 Status: Completed Saline Flush 0.9% 10 mL, Route: IVP, Drug Form: INJ, Dosing Weight 65.909, kg, PRN, PRN Line Flush , Start date: 08/09/17 16:16:00 [employer] 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, Duration: 30 day, Stop date: 09/08/17 16:15 :00 [employer]ATIONS 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 Notes: (Same as: BD Posiflush) Start Date: 08/09/17 Stop Date: 08/09/17 Status: Discontinued Sodium Chloride 0.9% (Bolus) IV 1,000 mL, 2,000 ml/hr, Infuse Over: 30 minutes, Route: IV, 1,000, Drug form: INJ , ONCE, Priority: STAT, Dosing Weight 65.909 kg, Start date: 08/09/17 16:16:[address], Duration: 1 doses or times, Stop date: 08/09/17 16:16:00 [employer] 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 Start Date: 08/09/17 Stop Date: 08/09/17 Status: Completed Zofran 4 mg, Route: IVP, Drug form: INJ, ONCE, Dosing Weight 63.636, kg, Priority: STAT , Start date: 08/09/17 18:57:00 [employer]ATIONS 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, Stop date: 08/09/17 18:57:00 [employer] 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 Start Date: 08/09/17 Stop Date: 08/09/17 Status: Discontinued Zofran ODT 4 mg oral tablet, disintegrating 4 mg=1 tab, PO, BID, PRN Nausea and Vomiting, Dissolve tab under tongue, # 6 tab , 0 Refill(s) Start Date: 08/09/17 Stop Date: 08/12/17 Status: Ordered Results ELECTROLYTES Most recent to 1 oldest [Reference Range]: Sodium Lvl [135-145 141 mEq/L mEq/L] (08/09/17 4:36 PM) Potassium Lvl 4.2 mEq/L [3.5-5.1 mEq/L] (08/09/17 4:36 PM) Chloride Lvl [95-109 105 mEq/L mEq/L] (08/09/17 4:36 PM) CO2 [24-32 mEq/L] 29 mEq/L (08/09/17 4:36 PM) AGAP [10.0-20.0 11.2 mEq/L mEq/L] (08/09/17 4:36 PM) CHEM PANEL Most recent to 1 oldest [Reference Range]: Creatinine Lvl 0.93 mg/dL [0.50-1.40 mg/dL] (08/09/17 4:36 PM) eGFR 69 mL/min/1.73m2 1 *NA* (08/09/17 4:36 PM) BUN [7-22 mg/dL] 17 mg/dL (08/09/17 4:36 PM) Glucose Lvl [70-99 115 mg/dL mg/dL] *HI* (08/09/17 4:36 PM) Total Protein 8.4 g/dL [6.4-8.4 g/dL] (08/09/17 7:30 PM) Albumin Lvl [3.5-5.0 4.3 g/dL g/dL] (08/09/17 7:30 PM) Globulin [2.7-4.2 4.1 g/dL g/dL] (08/09/17 7:30 PM) A/G Ratio [0.7-1.6] 1.0 (08/09/17 7:30 PM) Calcium Lvl 9.7 mg/dL [8.5-10.5 mg/dL] (08/09/17 4:36 PM) ALT [0-65 unit/L] 22 unit/L (08/09/17 7:30 PM) AST [0-37 unit/L] 21 unit/L (08/09/17 7:30 PM) Alk Phos [39-136 91 unit/L unit/L] (08/09/17 7:30 PM) Bili Total [0.2-1.3 0.3 mg/dL mg/dL] (08/09/17 7:30 PM) Bili Direct [0.0-0.3 <0.0 mg/dL mg/dL] (08/09/17 7:30 PM) Bili Indirect >0.3 mg/dL [0.0-1.0 mg/dL] (08/09/17 7:30 PM) Lipase Lvl [73-393 153 unit/L unit/L] (08/09/17 4:36 PM) 1Result Comment: The eGFR is calculated [...] be mul tiplied by the estimated BMI. URINE CHEM Most recent to 1 oldest [Reference Range]: U Preg [Negative] Negative (08/09/17 7:30 PM) URINE AND STOOL Most recent to 1 oldest [Reference Range]: UA Turbidity [Clear] Slight *ABN* (08/09/17 7:30 PM) UA Color [Yellow] Yellow *NA* (08/09/17 7:30 PM) UA pH [5.0-8.0] 6.0 (08/09/17 7:30 PM) UA Spec Grav 1.016 [<=1.030] (08/09/17 7:30 PM) UA Glucose [Negative Negative mg/dL mg/dL] *NA* (08/09/17 7:30 PM) UA Blood [Negative] Negative (08/09/17 7:30 PM) UA Ketones [Negative Negative mg/dL mg/dL] *NA* (08/09/17 7:30 PM) UA Protein [Negative Negative mg/dL mg/dL] (08/09/17 7:30 PM) UA Urobilinogen <=1.0 mg/dL [0.1-1.0 mg/dL] *NA* (08/09/17 7:30 PM) UA Bili [Negative] Negative *NA* (08/09/17 7:30 PM) UA Leuk Est Large [Negative] *ABN* (08/09/17 7:30 PM) UA Nitrite Positive [Negative] *ABN* (08/09/17 7:30 PM) UA WBC [0-5 /HPF] 103 /HPF *HI* (08/09/17 7:30 PM) UA RBC [0-2 /HPF] 2 /HPF (08/09/17 7:30 PM) UA Bacteria [None Occasional /HPF Seen /HPF] *NA* (08/09/17 7:30 PM) UA Sq Epi [Few /LPF] Occasional /LPF *NA* (08/09/17 7:30 PM) HEMATOLOGY Most recent to 1 oldest [Reference Range]: WBC [3.7-10.4 K/CMM] 5.1 K/CMM (08/09/17 4:36 PM) RBC [4.20-5.40 4.34 M/CMM M/CMM] (08/09/17 4:36 PM) Hgb [12.0-16.0 g/dL] 13.9 g/dL (08/09/17 4:36 PM) Hct [36.0-48.0 %] 41.0 % (08/09/17 4:36 PM) MCV [80.0-98.0 fL] 94.4 fL (08/09/17 4:36 PM) MCH [27.0-31.0 pg] 32.1 pg *HI* (08/09/17 4:36 PM) MCHC [32.0-36.0 34.0 g/dL g/dL] (08/09/17 4:36 PM) RDW [11.5-14.5 %] 13.2 % (08/09/17 4:36 PM) Platelet [133-450 252 K/CMM K/CMM] (08/09/17 4:36 PM) MPV [7.4-10.4 fL] 8.7 fL (08/09/17 4:36 PM) Segs [45.0-75.0 %] 50.5 % (08/09/17 4:36 PM) Lymphocytes 37.5 % [20.0-40.0 %] (08/09/17 4:36 PM) Monocytes [2.0-12.0 9.5 % %] (08/09/17 4:36 PM) Eosinophils [0.0-4.0 2.0 % %] (08/09/17 4:36 PM) Basophils [0.0-1.0 0.5 % %] (08/09/17 4:36 PM) Segs-Bands # 2.6 K/CMM [1.5-8.1 K/CMM] (08/09/17 4:36 PM) Lymphocytes # 1.9 K/CMM [1.0-5.5 K/CMM] (08/09/17 4:36 PM) Monocytes # [0.0-0.8 0.5 K/CMM K/CMM] (08/09/17 4:36 PM) Eosinophils # 0.1 K/CMM [0.0-0.5 K/CMM] (08/09/17 4:36 PM) Immunizations No data available for this [...]
--- OUTSIDE RECORDS SUMMARY | 2019-01-04 06:31 | XMS REPORT ---
Author Author [facility] Address Unknown Phone Unavailable Care Team Providers Care Pressure Test Operator Name Role Phone Unavailable Unavailable Payers Payer Name Policy Type Policy Number Effective Date Expiration Date Problems This patient has no known problems. Allergies, Adverse Reactions, Alerts Allergy Name Allergy Type Status Severity Reaction(s) Onset Date Inactive Date Treating Clinician Comments MEDICAL TAPE DA Active [place] 2018-08-01 00:00:00 No Known Allergies DA Active U 2013-12-31 00:00:00 Medications This patient has no known medications.
[2019-01-04 09:20] VITALS: BP 117/79
== END | disposition home or self-care (01) ==
LOC: OR 06:28
PROVIDERS: ATTEND Internal Medicine Gastroenterology
DX: Z12.11 Encounter for screening for malignant neoplasm of colon (principal); D12.5 Benign neoplasm of sigmoid colon; K92.1 Melena; E66.3 Overweight; Z68.28 Body mass index [BMI] 28.0-28.9, adult; Z71.3 Dietary counseling and surveillance; K21.9 Gastro-esophageal reflux disease without esophagitis; F41.9 Anxiety disorder, unspecified; I10 Essential (primary) hypertension; Z01.810 Encounter for preprocedural cardiovascular examination; K63.5 Polyp of colon; K64.8 Other hemorrhoids
CPT/HCPCS: 45385; 93005; J2250; J2704